=== PATIENT | female | born 1935 | race Caucasian/White ===

== ENCOUNTER 2018-12-10 22:10 | Inpatient (IN) | payer OTHER ==
[2018-12-10] MEDS ORDERED: METOPROLOL TARTRATE 5 MG/5 ML VIAL IVPUSH ONE (22:35)
[2018-12-10] MEDS ORDERED: METOPROLOL TARTRATE 5 MG/5 ML VIAL ONE (22:50)
--- NOTE | 2018-12-10 22:54 | PDOC ---
Documentation entered by Nichelle Jackson SCRIBE, acting as scribe for Rosanne Encinas DO. Rosanne Encinas, DO: This documentation has been prepared by the Renetta ramsey Adrianna, SCRIBE, under my direction and personally reviewed by me in its entirety. I confirm that the documentation accurately reflects all work, treatment, procedures, and medical decision making performed by me. History of Present Illness - General Stated Complaint: ABDOMINAL PAIN Time Seen by Provider: 12/10/18 22:22 - History of Present Illness Initial Comments: The patient is an 83 year old female, with a significant PMH of HTN and glaucoma , who presents to the ED for epigastric discomfort for a few hours. Patient notes she developed sudden onset epigastric discomfort after eating dinner earlier tonight. She states it feels funny, but denies any abdominal pain. Patient endorses associated nausea, and feels like she is going to vomit but cannot. She reports 4 episodes of diarrhea. Patient notes her heart feels like it is beating fast, which happens sometimes. She was found to be in Afib while in the ED, but denies any known history of Afib. Her friend was with her prior to arrival, and note she was pale with slightly slurred speech. Patient reports feeling warm and nauseous while in the ED. Denies fever, chills, chest pain, SOB, dysuria. Allergies: Cannot recall (BP medication) Surgical History: Hysterectomy Social History: Denies EtOH, tobacco, or illicit drug use PCP: Dr. Osman Alberts Past History - Past Medical History Allergies/Adverse Reactions: Allergies Allergy/AdvReac Type Severity Reaction Status Date / Time No Known Allergies Allergy Verified 12/10/18 22:44 Review of Systems - Review of Systems Comments:: GENERAL/CONSTITUTIONAL: +Warm. No fever or chills. No weakness. HEAD, EYES, EARS, NOSE AND THROAT: No change in vision. No ear pain or discharge. No sore throat. GASTROINTESTINAL: +Nausea. +Diarrhea. +Epigastric funny feeling. No vomiting or constipation. GENITOURINARY: No dysuria, frequency, or change in urination. CARDIOVASCULAR: +Heart beating fast. +Afib. No chest pain or shortness of breath. RESPIRATORY: No cough, wheezing, or hemoptysis. MUSCULOSKELETAL: No joint or muscle swelling or pain. No neck or back pain. SKIN: No rash NEUROLOGIC: No headache, vertigo, loss of consciousness, or change in strength/ sensation. ENDOCRINE: No increased thirst. No abnormal weight change. HEMATOLOGIC/LYMPHATIC: No anemia, easy bleeding, or history of blood clots. ALLERGIC/IMMUNOLOGIC: No hives or skin allergy. *Physical Exam - Vital Signs Last Vital Signs Temp Pulse Resp BP Pulse Ox 97.8 F 130 H 17 162/100 94 L 12/10/18 22:40 12/10/18 22:40 12/10/18 22:40 12/10/18 22:40 12/10/18 22:40 - Physical Exam Comments: Constitutional: Awake, alert, oriented. No acute distress. Head: Normocephalic. Atraumatic Eyes: PERRL. EOMI. Conjunctivae are not pale. ENT: Mucous membranes are moist and intact. Posterior pharynx without exudates or erythema. Uvula midline. Neck: Supple. Full ROM. No lymphadenopathy. Cardiovascular: +Tachycardic, +Irregularly irregular. S1, S2 regular. Distal pulses are 2+ and symmetric. Pulmonary/Chest: No evidence of respiratory distress. Clear to auscultation bilaterally No wheezing, rales or rhonchi. Abdominal: Soft and nondistended. There is no tenderness. No rebound, guarding or rigidity. No organomegaly. No palpable masses. Good bowel sounds. Back: No CVA tenderness. Musculoskeletal: No edema. No cyanosis. No clubbing. Full range of motion in all extremities. Nocalf tenderness. Radial/pedal pulses are intact and 2+ bilaterally Skin: Skin is warm and dry. No petechiae. No purpura. Neurological: Alert and oriented to person, place, and time. Cranial nerves II -XII are grossly intact. Normal speech. Strength is grossly symmetric. No sensory deficits. Psychiatric: Good eye contact. Normal interaction, affect and behavior. Heart Score/ECG Review - ECG Intrepretation Comment:: 12/10/18 22:47 afib w rvr at 128, nl axis, st depression v4-6, I, avl, no acute t wave inversions - new onset afib ED Treatment Course - LABORATORY CBC & Chemistry Diagram: 12/10/18 22:55 12/10/18 22:55 - RADIOLOGY Radiology Studies Ordered: Category Date Time Status CHEST X-RAY PORTABLE* [RAD] Stat Radiology 12/10/18 22:35 Ordered Medical Decision Making - Critical Care Time Total Critical Care Time (minutes): 35 Critical Care Statement: The care of this patient involved high complexity decision making to prevent further life threatening deterioration of the patient 's condition and/or to evaluate & treat vital organ system(s) failure or risk of failure. - Medical Decision Making 12/10/18 22:47 a/p: 83yo female with hx of htn with a funny epigastric feeling -states it started after dinner and then she had 4 episodes of diarrhea -denies cp/sob -denies n/v -pt arrives via ambulance from home in Afib w rvr -no prior hx of afib -will send labs, ekg, cxr, trop, bnp, electrolytes -will give iv lopressor given pt takes metoprolol 150mg daily -CHADSVASC = 4 -will need anticoag -case discussed with Dr. Alberts- admitting to [facility], requests Dr. Renae from cards 12/10/18 23:48 hr now 90-104 will add po metoprolol pt states feeling better potassium 3.2 will replace microblog sent to [facility] for admission call placed to cardiology 12/10/18 23:49 I, Dr. Rosanne Encinas, DO, attest that this document has been prepared under my direction and personally reviewed by me in its entirety. I further attest, that it accurately reflects all work, treatment, procedures and medical decision -making performed by me. 12/10/18 23:[address] Emerson - requests eliquis 5mg bid will start in the ER 12/11/18 00:07 cxr clear 12/11/18 00:[address] Almonte - at the bedside to see the patient accepts pt to service requests heparin gtt pending echo then eliquis Discharge - Discharge Information Problems reviewed: Yes Clinical Impression/Diagnosis: New onset a-fib Condition: Fair - Admission Yes - Follow up/Referral Referrals: Osman Alberts, RES [Primary Care Provider] - - Patient Discharge Instructions - Post Discharge Activity
[2018-12-10 23:05] LABS: BASO % 0.3 % (0-2.0); EOS % 0.2 % (0-4.5); HEMATOCRIT 38.8 % (32.4-45.2); LYMPH % 10.8 % (8-40); MCH 32.4 pg (25.7-33.7); MCHC 33.5 g/dl (32.0-36.0); MEAN CELL VOLUME 96.8 fl (80-96); MEAN PLT VOLUME 7.7 fl (7.5-11.1); MONO % 5.8 % (3.8-10.2); NEUT % 82.9 % (42.8-82.8); PLATELET COUNT 262 K/MM3 (134-434); RBC 4.01 M/mm3 (3.60-5.2); RDW 13.1 % (11.6-15.6); WHITE BLOOD COUNT 10.3 K/mm3 (4.0-10.0)
[2018-12-10 23:22] LABS: INR 1.06 (0.83-1.09); PROTHROMBIN TIME (PATIENT) 12.5 SEC (9.7-13.0)
[2018-12-10 23:28] LABS: BILIRUBIN,TOTAL 0.4 mg/dL (0.2-1); BLOOD UREA NITROGEN 24.1 mg/dL (7-18); CALCIUM 9.4 mg/dL (8.5-10.1); CREATININE 0.8 mg/dL (0.55-1.3); POTASSIUM 3.2 mmol/L (3.5-5.1); TOT PROT 8.1 g/dl (6.4-8.2)
[2018-12-10 23:34] LABS: LIPASE 181 U/L (73-393); MAGNESIUM 1.9 mg/dL (1.8-2.4); N-TERMINAL BNP 377.6 pg/ml (5-450)
[2018-12-10] MEDS ORDERED: APIXABAN 5 MG TABLET PO ONE (23:45)
[2018-12-10] MEDS ORDERED: POTASSIUM CHLORIDE TABS 20 MEQ TABLET.ER (FP) PO ONE (23:46)
[2018-12-10] MEDS ORDERED: ONDANSETRON 4 MG/2 ML VIAL IVPUSH ONE (23:46)
[2018-12-10] MEDS ORDERED: METOPROLOL TARTRATE 25 MG TABLET (FP) PO ONE (23:47)
--- NOTE | 2018-12-11 00:10 | PN ---
Teaching Attending Note Name of Resident: Aracelis Camara ATTENDING PHYSICIAN STATEMENT I saw and evaluated the patient. I reviewed the resident's note and discussed the case with the resident. I agree with the resident's findings and plan as documented. SUBJECTIVE: 83 year old female, with a significant PMH of HTN and glaucoma, who Complained of feeling poorly. She reported Feeling palpitations in her epigastric region.She denied any overt pain.Denied any history of any cardiac arrhythmias, chest pain, other cardiac disease. Found to be in new onset A. fib with RVR in the emergency room. OBJECTIVE: Last Vital Signs Temp Pulse Resp BP Pulse Ox 97.8 F 131 H 17 120/90 94 L 12/10/18 22:40 12/10/18 23:38 12/10/18 22:40 12/10/18 23:38 12/10/18 22:40 GENERAL: Well developed, well nourished. Awake and alert. No acute distress. HEENT: Normocephalic, atraumatic. PERRLA, EOMI. No conjunctival pallor. Sclera are non- icteric. Moist mucous membranes. Oropharynx is clear. NECK: Bilateral JVD appreciated, supple, no masses CARDIOVASCULAR: S1+ , S2 + irregularly irregular, RVR PULMONARY: No evidence of respiratory distress. Lungs clear to auscultation bilaterally. No wheezing, rales or rhonchi. ABDOMINAL: Soft. Non-tender. Non-distended. No rebound or guarding. No organomegaly. Normoactive bowel sounds. MUSCULOSKELETAL Normal range of motion at all joints. No bony deformities or tenderness. No CVA tenderness. EXTREMITIES: No cyanosis. No clubbing. No edema. No calf tenderness. SKIN: Warm and dry. Normal capillary refill. No rashes. No jaundice. PSYCHIATRIC: Cooperative. Good eye contact. Appropriate mood and affect. Abnormal Lab Results 12/10/18 12/10/18 22:55 22:55 WBC 10.3 H MCV 96.8 H Absolute Neuts (auto) 8.5 H Neutrophils % 82.9 H Potassium 3.2 L Chloride 95 L BUN 24.1 H Random Glucose 154 H Imaging reviewed EKG reviewed found to have A. fib with RVR ASSESSMENT AND PLAN: New onset atrial fibrillation with rapid ventricular response in an 83-year-old woman. Admit to telemetry Continue metoprolol home dose and add additional dose for cardiac rate control Echo TSH Check magnesium and other electrolytes Cardiology evaluation Started on heparin drip for anticoagulation discussed risks and benefits of anticoagulation including risk of bleeding with patient DVT prophylaxis
[2018-12-11] MEDS ORDERED: HEPARIN NA (PORCINE) 5,000 UNITS/ML 1ML VIAL IVPUSH PRN ×2 (00:40)
[2018-12-11] MEDS ORDERED: METOPROLOL TARTRATE 25 MG TABLET (FP) PO ONE (00:42)
[2018-12-11] MEDS ORDERED: HEPARIN - 25,000 UNIT in SODIUM CHLORIDE 495 ML IV SCH (00:45)
[2018-12-11] MEDS ORDERED: ONDANSETRON 4 MG/2 ML VIAL ONE (01:04)
[2018-12-11] MEDS ORDERED: HEPARIN NA (PORCINE) 5,000 UNITS/ML 1ML VIAL ONE (01:23)
[2018-12-11] MEDS ORDERED: HEPARIN INFUSION - 25,000 UNITS/500 ML INFUS.BAG IVPB ONE (01:23)
[2018-12-11] MEDS ORDERED: METOPROLOL TARTRATE 25 MG TABLET (FP) ONE (01:36)
[2018-12-11 01:53] LABS: EPI CELLS 0.8 /HPF (0-5/HPF); HYALINE CASTS 14 /lpf (0-8); URINE APPEARANCE CLOUDY; URINE BACTERIA 463.1 /hpf (NEGATIVE); URINE BILIRUBIN NEGATIVE (NEGATIVE); URINE COLOR YELLOW; URINE GLUCOSE (UA) NEGATIVE (NEGATIVE); URINE KETONE 1+ (NEGATIVE); URINE LEUK ESTERASE 2+ (NEGATIVE); URINE NITRITE NEGATIVE (NEGATIVE); URINE PROTEIN 1+ (NEGATIVE); URINE RBC 3 /hpf (0-4); URINE UROBILINOGEN 0.2 mg/dL (0.2-1.0); URINE WBC 102 /hpf (0-5)
--- NOTE | 2018-12-11 02:55 | HP ---
CHIEF COMPLAINT: Nausea PCP: Dr. Alberts HISTORY OF PRESENT ILLNESS: Patient is a 83 year old female with past medical history of HTN, glaucoma, fibroids (s/p hysterectomy) who presents to the ED with nausea since 2pm and 5 episodes of diarrhea. She also notes that she had an episode of rapid heart beat that lasted for about 30min. She felt weak, faint, and diaphoretic. She called a friend who was at the bedside. Per the friend the patient appeared diaphoretic, pale, and weak when she arrived at her home. On arrival in the ED the patient's EKG revealed atrial fibrillation with RVR. The patient denies any known history of Afib. The patient also endorsed epigastric discomfort which she attributes to her nausea and denied any CP, SOB, fever, chills, or dysuria. The patient stated she usually has normal daily BMs, including a normal BM yesterday. Her diarrhea today was not black in color and without obvious blood in it. She reports it resolved on its own prior to coming to the hospital. ER course was notable for: (1) EKG with Afib and RVR (2) IVP lopressor admin X2 (3) Heparin drip started, K+ repleted Recent Travel: denies PAST MEDICAL HISTORY: past medical history of HTN, glaucoma, fibroids (s/p hysterectomy) PAST SURGICAL HISTORY: s/p Hysterectomy at age 39 Social History: Smoking: denies Alcohol: denies Drugs: denies Allergies- patient reports an allergy to a BP med, does not recall name, said her reaction was facial swelling. No Known Allergies Allergy (Verified 12/10/18 22:44) HOME MEDICATIONS: Home Medications Medication Instructions Recorded Amlodipine Besylate 10 mg PO DAILY 12/11/18 Aspirin 81 mg PO DAILY 12/11/18 Hydrochlorothiazide [Hctz -] 50 mg PO DAILY 12/11/18 Potassium Chloride 10 meq PO DAILY 12/11/18 REVIEW OF SYSTEMS CONSTITUTIONAL: generalized weakness, Absent: fever, chills, diaphoresis, malaise, loss of appetite, weight change HEENT: Absent: rhinorrhea, nasal congestion, throat pain, throat swelling, difficulty swallowing, mouth swelling, ear pain, eye pain, visual changes CARDIOVASCULAR: palpitations, irregular heart rate, Absent: chest pain, syncope, lightheadedness, peripheral edema RESPIRATORY: Absent: cough, shortness of breath, dyspnea with exertion, orthopnea, wheezing, stridor, hemoptysis GASTROINTESTINAL: nausea, diarrhea Absent: abdominal pain, abdominal distension, vomiting, , constipation, melena, hematochezia GENITOURINARY: Absent: dysuria, frequency, urgency, hesitancy, hematuria, flank pain, genital pain MUSCULOSKELETAL: Absent: myalgia, arthralgia, joint swelling, back pain, neck pain SKIN: Absent: rash, itching, pallor HEMATOLOGIC/IMMUNOLOGIC: Absent: easy bleeding, easy bruising, lymphadenopathy, frequent infections ENDOCRINE: Absent: unexplained weight gain, unexplained weight loss, heat intolerance, cold intolerance NEUROLOGIC: Absent: headache, focal weakness or paresthesias, dizziness, unsteady gait, seizure, mental status changes, bladder or bowel incontinence PSYCHIATRIC: Absent: anxiety, depression, suicidal or homicidal ideation, hallucinations. PHYSICAL EXAMINATION Vital Signs - 24 hr 12/10/18 12/10/18 12/10/18 22:40 23:05 23:20 Temperature 97.8 F Pulse Rate 130 H Pulse Rate [ 110 H Radial] Respiratory 17 Rate Blood Pressure 162/100 168/98 Blood Pressure 125/79 [Left Arm] O2 Sat by Pulse 94 L Oximetry (%) 12/10/18 12/11/18 12/11/18 23:38 01:03 01:35 Temperature Pulse Rate Pulse Rate [ 131 H 108 H 139 H Radial] Respiratory 18 Rate Blood Pressure Blood Pressure 120/90 147/94 143/108 H [Left Arm] O2 Sat by Pulse 95 Oximetry (%) 12/11/18 12/11/18 12/11/18 02:28 02:29 02:36 Temperature Pulse Rate Pulse Rate [ 118 H 112 H Radial] Respiratory Rate Blood Pressure Blood Pressure 139/103 H 140/99 [Left Arm] O2 Sat by Pulse 95 95 Oximetry (%) GENERAL: Awake, alert, and fully oriented, in no acute distress. HEAD: Normal with no signs of trauma. EYES: Pupils equal, round and reactive to light, extraocular movements intact, sclera anicteric, conjunctiva clear. No lid lag. EARS, NOSE, THROAT: Ears normal, nares patent, oropharynx clear without exudates. Moist mucous membranes. NECK: Normal range of motion, supple without lymphadenopathy or masses, + JVD appreciated LUNGS: Breath sounds equal, clear to auscultation bilaterally. No wheezes, and no crackles. No accessory muscle use. HEART: irregularly irregular rhythm, RVR, tachycardic, S1+ , S2 + without murmur ABDOMEN: Soft, nontender, not distended, normoactive bowel sounds, no guarding, no rebound, no masses. No hepatomegaly or splenomegaly. L sided vertical hysterectomy scar MUSCULOSKELETAL: Normal range of motion at all joints. No bony deformities or tenderness. No CVA tenderness. UPPER EXTREMITIES: 2+ pulses, warm, well-perfused. No cyanosis. No clubbing. No peripheral edema. LOWER EXTREMITIES: 2+ pulses, warm, well-perfused. No calf tenderness. No peripheral edema. NEUROLOGICAL: Cranial nerves II-XII intact. Normal speech. Normal gait. PSYCHIATRIC: Cooperative. Good eye contact. Appropriate mood and affect. SKIN: Warm, dry, normal turgor, no rashes or lesions noted, normal capillary refill. On L side of mid back below scapula there is an old incision elpidio which appears healed however edges of wound are not apposed. Per patient, she had a small abcess which was drained via incision 2 years ago, no tenderness or erythema. LLE with stasis dermatitis from mid [place] to love. Laboratory Results - last 24 hr 12/10/18 12/10/18 12/10/18 22:55 22:55 22:55 WBC 10.3 H RBC 4.01 Hgb 13.0 Hct 38.8 MCV 96.8 H MCH 32.4 MCHC 33.5 RDW 13.1 Plt Count 262 MPV 7.7 Absolute Neuts (auto) 8.5 H Neutrophils % 82.9 H Lymphocytes % 10.8 Monocytes % 5.8 Eosinophils % 0.2 Basophils % 0.3 Nucleated RBC % 0 PT with INR INR PTT (Actin FS) 30.6 Sodium Potassium Chloride Carbon Dioxide Anion Gap BUN Creatinine Est GFR (CKD-EPI)AfAm Est GFR (CKD-EPI)NonAf Random Glucose Calcium Magnesium 1.9 Total Bilirubin AST ALT Alkaline Phosphatase Creatine Kinase 98 Troponin I < 0.02 B-Natriuretic Peptide 377.6 Total Protein Albumin Lipase 181 TSH 0.65 Urine Color Urine Appearance Urine pH Ur Specific [place] Urine Protein Urine Glucose (UA) Urine Ketones Urine Blood Urine Nitrite Urine Bilirubin Urine Urobilinogen Ur Leukocyte Esterase Urine WBC (Auto) Urine RBC (Auto) Urine Casts (Auto) U Epithel Cells (Auto) Urine Bacteria (Auto) 12/10/18 12/10/18 12/11/18 22:55 22:55 01:20 WBC RBC Hgb Hct MCV MCH MCHC RDW Plt Count MPV Absolute Neuts (auto) Neutrophils % Lymphocytes % Monocytes % Eosinophils % Basophils % Nucleated RBC % PT with INR 12.50 INR 1.06 PTT (Actin FS) Sodium 136 Potassium 3.2 L Chloride 95 L Carbon Dioxide 31 Anion Gap 10 BUN 24.1 H Creatinine 0.8 Est GFR (CKD-EPI)AfAm 78.47 Est GFR (CKD-EPI)NonAf 67.70 Random Glucose 154 H Calcium 9.4 Magnesium Total Bilirubin 0.4 AST 30 ALT 29 Alkaline Phosphatase 84 Creatine Kinase Troponin I B-Natriuretic Peptide Total Protein 8.1 Albumin 4.0 Lipase TSH Urine Color Yellow Urine Appearance Cloudy Urine pH 7.0 Ur Specific [place] 1.015 Urine Protein 1+ H Urine Glucose (UA) Negative Urine Ketones 1+ H Urine Blood Negative Urine Nitrite Negative Urine Bilirubin Negative Urine Urobilinogen 0.2 Ur Leukocyte Esterase 2+ H Urine WBC (Auto) 102 Urine RBC (Auto) 3 Urine Casts (Auto) 14 U Epithel Cells (Auto) 0.8 Urine Bacteria (Auto) 463.1 ASSESSMENT/PLAN: Patient is a 83 year old female with past medical history of HTN, glaucoma, fibroids (s/p hysterectomy) who presents to the ED with nausea since 2pm and 5 episodes of diarrhea. She also notes that she had an episode of rapid heart beat that lasted for about 30min. # Afib with RVR -CHADSVASC = 4 - Admit to telemetry - Continue metoprolol home dose, consider titrating up if rate still not well controlled - Echo to r/o mitral valve pathology - TSH - f/u magnesium and other electrolytes> replete prn - Cardiology consulted, Dr. Renae, appreciate recommendations - Started on heparin drip for anticoagulation pending results of echo, if no valve pathology switch to eliquis 5mg BID - patient counselled on risks and benefits of A/C, agreed to treatment. # FEN - replete PRN - Na restricted diet # PPx - Heparin drip pending Echo, if no valve pathology switch to eliquis 5mg BID. # Dispo- admit to tele, full code Visit type - Emergency Visit Emergency Visit: Yes ED Registration Date: 12/10/18 Care time: The patient presented to the Emergency Department on the above date and was hospitalized for further evaluation of their emergent condition. - New Patient This patient is new to me today: Yes Date on this admission: 12/11/18 - Critical Care Critical Care patient: No ATTENDING PHYSICIAN STATEMENT I saw and evaluated the patient. I reviewed the resident's note and discussed the case with the resident. I agree with the resident's findings and plan as documented. SUBJECTIVE: OBJECTIVE: ASSESSMENT AND PLAN:
[2018-12-11] MEDS ORDERED: METOPROLOL TARTRATE 5 MG/5 ML VIAL IVPUSH PRN (05:23)
[2018-12-11] MEDS ORDERED: METOPROLOL SUCCINATE 100 MG, METOPROLOL SUCCINATE 50 MG PO SCH ×2 (05:30→10:00)
[2018-12-11 06:47] VITALS: BMI 20.8
[2018-12-11 07:30] LABS: INR 1.2 (0.83-1.09); PROTHROMBIN TIME (PATIENT) 14.2 SEC (9.7-13.0)
[2018-12-11 07:34] LABS: BASO % 0.1 % (0-2.0); EOS % 0.1 % (0-4.5); HEMATOCRIT 36.9 % (32.4-45.2); HEMOGLOBIN 12.6 GM/dL (10.7-15.3); LYMPH % 14.9 % (8-40); MCH 32.5 pg (25.7-33.7); MEAN CELL VOLUME 95.6 fl (80-96); MEAN PLT VOLUME 7.7 fl (7.5-11.1); MONO % 8.8 % (3.8-10.2); NEUT % 76.1 % (42.8-82.8); PLATELET COUNT 259 K/MM3 (134-434); RBC 3.86 M/mm3 (3.60-5.2); RDW 12.7 % (11.6-15.6); WHITE BLOOD COUNT 8.7 K/mm3 (4.0-10.0)
[2018-12-11] MEDS: POTASSIUM CHLORIDE TABS 10 MEQ TABLET.ER (FP) PO SCH (09:28)
[2018-12-11] MEDS: dilTIAZem HCL 30 MG TABLET (FP) PO SCH ×3 (09:28→21:37)
[2018-12-11] MEDS ORDERED: PT OWN MED DRAWER 7, Y5N ONE (09:31)
[2018-12-11] MEDS ORDERED: HYDROCHLOROTHIAZIDE 50 MG TABLET PO SCH (10:00)
[2018-12-11] MEDS ORDERED: amLODIPine BESYLATE 10 MG TABLET (FP) PO SCH (10:00)
[2018-12-11] MEDS ORDERED: ASPIRIN 81 MG CHEWABLE TABLETS PO SCH (10:00)
--- NOTE | 2018-12-11 10:00 | CON.CARD ---
Consult Consult Specialty:: Cardiology Referred by:: Herb Reason for Consultation:: PAF - History of Present Illness Chief Complaint: palpitations History of Present Illness: Patient is a 83 year old female with past medical history of HTN, glaucoma, fibroids (s/p hysterectomy) who presents to the ED with nausea since 2pm and 5 episodes of diarrhea. She also notes that she had an episode of rapid heart beat that lasted for about 30min. She felt weak, faint, and diaphoretic. She called a friend who was at the bedside. Per the friend the patient appeared diaphoretic, pale, and weak when she arrived at her home. On arrival in the ED the patient's EKG revealed atrial fibrillation with RVR. No chest pain, orthopnea, PND or edema. Baseline exercise tolerance is good. - History Source History Provided By: Patient, Medical Record Limitations to Obtaining History: No Limitations - Alcohol/Substance Use Hx Alcohol Use: No - Smoking History Smoking history: Never smoked Have you smoked in the past 12 months: No Home Medications - Allergies Allergies/Adverse Reactions: Allergies Allergy/AdvReac Type Severity Reaction Status Date / Time No Known Allergies Allergy Verified 12/10/18 22:44 - Home Medications Home Medications: Ambulatory Orders Amlodipine Besylate 10 mg PO DAILY 12/11/18 Aspirin 81 mg PO DAILY 12/11/18 Hydrochlorothiazide [Hctz -] 50 mg PO DAILY 12/11/18 Metoprolol Succinate [Toprol Xl] 1.5 tablet PO DAILY 12/11/18 Potassium Chloride 10 meq PO DAILY 12/11/18 Vital Signs: Vital Signs Temperature 98.6 F 12/11/18 04:16 Pulse Rate 128 H 12/11/18 08:29 Respiratory Rate 20 12/11/18 04:16 Blood Pressure 138/79 12/11/18 08:29 O2 Sat by Pulse Oximetry (%) 96 12/11/18 03:47 Constitutional: Yes: No Distress, Calm Eyes: Yes: Conjunctiva Clear, EOM Intact HENT: Yes: Atraumatic, Normocephalic Neck: Yes: Supple, Trachea Midline Respiratory: Yes: CTA Bilaterally Gastrointestinal: Yes: Normal Bowel Sounds, Soft Cardiovascular: Yes: Tachycardia, Pulse Irregular JVD: No Carotid Bruit: No PMI: Non-Displaced Heart Sounds: Yes: S1, S2 Murmur: Yes: Systolic Murmur, Grade 2 Musculoskeletal: Yes: WNL Extremities: Yes: WNL Edema: No Peripheral Pulses WNL: Yes - Other Data Labs, Other Data: CBC, BMP 12/11/18 06:45 INR, PTT INR 1.20 (0.83-1.09) H 12/11/18 06:45 Troponin, BNP 12/10/18 22:55 Troponin I < 0.02 B-Natriuretic Peptide 377.6 Troponin, BNP 12/10/18 22:55 Troponin I < 0.02 B-Natriuretic Peptide 377.6 Imaging - Results Chest X-ray: Report Reviewed EKG: Report Reviewed (af rvr) Assessment/Plan Patient is a 83 year old female with past medical history of HTN, glaucoma, fibroids (s/p hysterectomy) who presents to the ED with nausea since 2pm and 5 episodes of diarrhea. She also notes that she had an episode of rapid heart beat that lasted for about 30min. She felt weak, faint, and diaphoretic. She called a friend who was at the bedside. Per the friend the patient appeared diaphoretic, pale, and weak when she arrived at her home. On arrival in the ED the patient's EKG revealed atrial fibrillation with RVR. Plan: -TFT's -echo results pending. -continue beta rosey PO -change heparin to Eliquis 2.5 mg bid -continue telemetry.
[2018-12-11 10:09] LABS: ALBUMIN 3.6 g/dl (3.4-5.0); BILIRUBIN,TOTAL 0.4 mg/dL (0.2-1); BLOOD UREA NITROGEN 18.4 mg/dL (7-18); CREATININE 0.8 mg/dL (0.55-1.3); MAGNESIUM 1.9 mg/dL (1.8-2.4); PHOSPHOROUS 3.3 mg/dL (2.5-4.9); TOT PROT 8.1 g/dl (6.4-8.2)
[2018-12-11 10:12] LABS: POTASSIUM 3.4 mmol/L (3.5-5.1)
--- NOTE | 2018-12-11 12:05 | EKG ---
Test Reason : Blood Pressure : / mmHG Vent. Rate : 121 BPM Atrial Rate : 300 BPM P-R Int : 000 ms QRS Dur : 084 ms QT Int : 340 ms P-R-T Axes : 000 045 088 degrees QTc Int : 482 ms ATRIAL FLUTTER WITH VARIABLE A-V BLOCK ABNORMAL ECG WHEN COMPARED WITH ECG OF 10-DEC-2018 22:17, ATRIAL FLUTTER HAS REPLACED ATRIAL FIBRILLATION NONSPECIFIC T WAVE ABNORMALITY HAS REPLACED INVERTED T WAVES IN LATERAL LEADS Confirmed by RAFFI SCHWARTZ MD ([id number]) on 12/11/2018 12:05:25 PM Referred By: Confirmed By:RAFFI SCHWARTZ MD
--- NOTE | 2018-12-11 12:05 | EKG ---
Test Reason : Blood Pressure : / mmHG Vent. Rate : 128 BPM Atrial Rate : 125 BPM P-R Int : 000 ms QRS Dur : 088 ms QT Int : 264 ms P-R-T Axes : 000 039 199 degrees QTc Int : 385 ms ATRIAL FIBRILLATION WITH RAPID VENTRICULAR RESPONSE POSTERIOR INFARCT , AGE UNDETERMINED ABNORMAL ECG NO PREVIOUS ECGS AVAILABLE Confirmed by RAFFI SCHWARTZ MD ([id number]) on 12/11/2018 12:05:08 PM Referred By: Confirmed By:RAFFI SCHWARTZ MD
--- NOTE | 2018-12-11 14:22 | ECHO ---
Name: LAURALOVELY Exam:Adult Echocardiogram Study Date: 12/11/2018 11:06 AM Age: 83 yrs Reason For Study: AFIB Height: 62 in Weight: 200 lb BSA: 1.9 m2 MMode/2D Measurements & Calculations IVSd: 0.91 cm Ao root diam: 2.8 cm LVIDd: 3.1 cm LA dimension: 3.4 cm LVIDs: 2.4 cm LVPWd: 1.0 cm LVPWs: 1.2 cm EDV(Teich): 38.1 ml ESV(Teich): 19.5 ml LVOT diam: 1.6 cm LAV (MOD-bp): 37.0 ml Doppler Measurements & Calculations MV E max hyacinth: 101.0 cm/sec Ao V2 max: 161.6 cm/sec MV A max hyacinth: 84.4 cm/sec Ao max P.4 mmHg MV E/A: 1.2 ELISA(V,D): 1.1 cm2 LV V1 max P.1 mmHg TR max hyacinth: 260.6 cm/sec LV V1 max: 87.9 cm/sec TR max P.6 mmHg PA V2 max: 95.0 cm/sec Lat Peak E' Hyacinth: 3.7 cm/sec PA max P.6 mmHg Lat E/e': 27.1 Procedure A complete two-dimensional transthoracic echocardiogram was performed (2D, M-mode, Doppler and color flow Doppler). The patient was in atrial fibrillation with rapid ventricular response during the exam with a heart rate exceeding 100 bpm. Left Ventricle The left ventricular size, thickness and function are normal. The left ventricular ejection fraction is normal. Ejection Fraction = 60-65%. The left ventricular wall motion is normal. Right Ventricle The right ventricle is normal in size and function. Atria Normal left and right atrial size and function. The atrial septum is aneurysmal. Mitral Valve There is trace mitral regurgitation. Tricuspid Valve There is moderate tricuspid regurgitation. Right ventricular systolic pressure is normal. Aortic Valve No hemodynamically significant valvular aortic stenosis. No aortic regurgitation is present. Pulmonic Valve There is no pulmonic valvular regurgitation. Great Vessels The aortic root is normal size. Pericardium/Pleura There is no pericardial effusion. Interpretation Summary The left ventricular size, thickness and function are normal The right ventricle is normal in size and function. The atrial septum is aneurysmal. There is trace mitral regurgitation. There is moderate tricuspid regurgitation. The patient was in atrial fibrillation with rapid ventricular response during the exam. MD Ben Hoff 12/11/2018 02:21 PM
[2018-12-11] MEDS ORDERED: POTASSIUM CHLORIDE ORAL LIQUID 20 MEQ/15 ML PO ONE (14:50)
[2018-12-11] MEDS ORDERED: SODIUM CHLORIDE 1,000 ML IV SCH (15:00)
[2018-12-11] MEDS ORDERED: SODIUM CHLORIDE 0.9% 500 ML INFUS.BAG IV ONE (15:00)
--- NOTE | 2018-12-11 15:23 | PN ---
Physical Exam: SUBJECTIVE: Patient seen and examined NAEON. Tele showing monitor HR 120-130s Endorse abd discomfort, no pain. No diarrhea OBJECTIVE: Vital Signs Period Temp Pulse Resp BP Sys/Pan Pulse Ox Last 24 Hr 97.8 F-98.6 F 106-139 17-20 120-168/79-108 94-96 GENERAL: awake, alert, and fully oriented, NAD HEAD: Normal with no signs of trauma. EYES: sclera anicteric, conjunctiva clear ENT: nares patent, moist mucous membranes. NECK: Trachea midline, full range of motion, supple. LUNGS: Breath sounds equal, clear to auscultation bilaterally, no wheezes, no crackles, no accessory muscle use. HEART: irregular rhythm, tachycardia; S1, S2 without murmur, rub or gallop. ABDOMEN: Soft, nontender, nondistended, normoactive bowel sounds, no guarding, no rebound. EXTREMITIES: 2+ pulses, warm, well-perfused. Mild nonpitting edema of BLE. NEUROLOGICAL: Normal speech. SKIN: Warm, dry, normal turgor. Purpuric ecchymotic patch of distal LLE Laboratory Results - last 24 hr 12/10/18 12/10/18 12/10/18 22:55 22:55 22:55 WBC 10.3 H RBC 4.01 Hgb 13.0 Hct 38.8 MCV 96.8 H MCH 32.4 MCHC 33.5 RDW 13.1 Plt Count 262 MPV 7.7 Absolute Neuts (auto) 8.5 H Neutrophils % 82.9 H Lymphocytes % 10.8 Monocytes % 5.8 Eosinophils % 0.2 Basophils % 0.3 Nucleated RBC % 0 PT with INR INR PTT (Actin FS) 30.6 Sodium Potassium Chloride Carbon Dioxide Anion Gap BUN Creatinine Est GFR (CKD-EPI)AfAm Est GFR (CKD-EPI)NonAf Random Glucose Hemoglobin A1c % Lactic Acid Calcium Phosphorus Magnesium 1.9 Total Bilirubin AST ALT Alkaline Phosphatase Creatine Kinase 98 Troponin I < 0.02 B-Natriuretic Peptide 377.6 Total Protein Albumin Triglycerides Cholesterol Total LDL Cholesterol HDL Cholesterol Lipase 181 TSH 0.65 Free T4 Urine Color Urine Appearance Urine pH Ur Specific [place] Urine Protein Urine Glucose (UA) Urine Ketones Urine Blood Urine Nitrite Urine Bilirubin Urine Urobilinogen Ur Leukocyte Esterase Urine WBC (Auto) Urine RBC (Auto) Urine Casts (Auto) U Epithel Cells (Auto) Urine Bacteria (Auto) Blood Type Antibody Screen 12/10/18 12/10/18 12/11/18 22:55 22:55 01:20 WBC RBC Hgb Hct MCV MCH MCHC RDW Plt Count MPV Absolute Neuts (auto) Neutrophils % Lymphocytes % Monocytes % Eosinophils % Basophils % Nucleated RBC % PT with INR 12.50 INR 1.06 PTT (Actin FS) Sodium 136 Potassium 3.2 L Chloride 95 L Carbon Dioxide 31 Anion Gap 10 BUN 24.1 H Creatinine 0.8 Est GFR (CKD-EPI)AfAm 78.47 Est GFR (CKD-EPI)NonAf 67.70 Random Glucose 154 H Hemoglobin A1c % Lactic Acid Calcium 9.4 Phosphorus Magnesium Total Bilirubin 0.4 AST 30 ALT 29 Alkaline Phosphatase 84 Creatine Kinase Troponin I B-Natriuretic Peptide Total Protein 8.1 Albumin 4.0 Triglycerides Cholesterol Total LDL Cholesterol HDL Cholesterol Lipase TSH Free T4 Urine Color Yellow Urine Appearance Cloudy Urine pH 7.0 Ur Specific [place] 1.015 Urine Protein 1+ H Urine Glucose (UA) Negative Urine Ketones 1+ H Urine Blood Negative Urine Nitrite Negative Urine Bilirubin Negative Urine Urobilinogen 0.2 Ur Leukocyte Esterase 2+ H Urine WBC (Auto) 102 Urine RBC (Auto) 3 Urine Casts (Auto) 14 U Epithel Cells (Auto) 0.8 Urine Bacteria (Auto) 463.1 Blood Type Antibody Screen 12/11/18 12/11/18 12/11/18 02:20 02:30 06:45 WBC 8.7 RBC 3.86 Hgb 12.6 Hct 36.9 MCV 95.6 MCH 32.5 MCHC 34.0 RDW 12.7 Plt Count 259 MPV 7.7 Absolute Neuts (auto) 6.6 Neutrophils % 76.1 Lymphocytes % 14.9 D Monocytes % 8.8 Eosinophils % 0.1 Basophils % 0.1 Nucleated RBC % 0 PT with INR INR PTT (Actin FS) Sodium Potassium Chloride Carbon Dioxide Anion Gap BUN Creatinine Est GFR (CKD-EPI)AfAm Est GFR (CKD-EPI)NonAf Random Glucose Hemoglobin A1c % Lactic Acid 2.1 H Calcium Phosphorus Magnesium Total Bilirubin AST ALT Alkaline Phosphatase Creatine Kinase Troponin I B-Natriuretic Peptide Total Protein Albumin Triglycerides Cholesterol Total LDL Cholesterol HDL Cholesterol Lipase TSH Free T4 Urine Color Urine Appearance Urine pH Ur Specific [place] Urine Protein Urine Glucose (UA) Urine Ketones Urine Blood Urine Nitrite Urine Bilirubin Urine Urobilinogen Ur Leukocyte Esterase Urine WBC (Auto) Urine RBC (Auto) Urine Casts (Auto) U Epithel Cells (Auto) Urine Bacteria (Auto) Blood Type A POSITIVE Antibody Screen Negative 12/11/18 12/11/18 12/11/18 06:45 06:45 06:45 WBC RBC Hgb Hct MCV MCH MCHC RDW Plt Count MPV Absolute Neuts (auto) Neutrophils % Lymphocytes % Monocytes % Eosinophils % Basophils % Nucleated RBC % PT with INR 14.20 H INR 1.20 H PTT (Actin FS) Sodium 128 L Potassium 3.4 L Chloride 90 L Carbon Dioxide 22 Anion Gap 17 H BUN 18.4 H Creatinine 0.8 Est GFR (CKD-EPI)AfAm 78.47 Est GFR (CKD-EPI)NonAf 67.70 Random Glucose 137 H Hemoglobin A1c % 5.9 Lactic Acid Calcium 9.0 Phosphorus 3.3 Magnesium 1.9 Total Bilirubin 0.4 AST 29 ALT 28 Alkaline Phosphatase 83 Creatine Kinase Troponin I B-Natriuretic Peptide Total Protein 8.1 Albumin 3.6 Triglycerides 47 Cholesterol 226 H Total LDL Cholesterol 130 H HDL Cholesterol 91 H Lipase TSH 0.30 L Free T4 1.40 Urine Color Urine Appearance Urine pH Ur Specific [place] Urine Protein Urine Glucose (UA) Urine Ketones Urine Blood Urine Nitrite Urine Bilirubin Urine Urobilinogen Ur Leukocyte Esterase Urine WBC (Auto) Urine RBC (Auto) Urine Casts (Auto) U Epithel Cells (Auto) Urine Bacteria (Auto) Blood Type Antibody Screen 12/11/18 06:45 WBC RBC Hgb Hct MCV MCH MCHC RDW Plt Count MPV Absolute Neuts (auto) Neutrophils % Lymphocytes % Monocytes % Eosinophils % Basophils % Nucleated RBC % PT with INR INR PTT (Actin FS) Sodium Potassium Chloride Carbon Dioxide Anion Gap BUN Creatinine Est GFR (CKD-EPI)AfAm Est GFR (CKD-EPI)NonAf Random Glucose Hemoglobin A1c % Lactic Acid Calcium Phosphorus Magnesium Total Bilirubin AST ALT Alkaline Phosphatase Creatine Kinase Troponin I B-Natriuretic Peptide Total Protein Albumin Triglycerides Cholesterol Total LDL Cholesterol HDL Cholesterol Lipase TSH Free T4 Urine Color Urine Appearance Urine pH Ur Specific [place] [facility] Urine Protein Urine Glucose (UA) Urine Ketones Urine Blood Urine Nitrite Urine Bilirubin Urine Urobilinogen Ur Leukocyte Esterase Urine WBC (Auto) Urine RBC (Auto) Urine Casts (Auto) U Epithel Cells (Auto) Urine Bacteria (Auto) Blood Type A POSITIVE Antibody Screen Active Medications Generic Name Dose Route Start Last Admin Trade Name Freq PRN Reason Stop Dose Admin Apixaban 2.5 mg 12/11/18 22:00 Eliquis - PO BID EUNICE Diltiazem HCl 30 mg 12/11/18 08:40 12/11/18 14:02 Cardizem - PO 30 mg TID EUNICE Administration Hydrochlorothiazide 50 mg 12/11/18 10:00 12/11/18 09:32 Hctz - PO 50 mg DAILY EUNICE Administration Heparin Sodium (Porcine) 25, 500 mls @ 20 mls/hr 12/11/18 00:45 12/11/18 01: 35 000 unit/ Sodium Chloride IV 12/11/18 20:00 1,000 unit/hr TITR EUNICE 20 mls/hr Administration Protocol 1,000 UNIT/HR Metoprolol Succinate 200 mg 12/11/18 11:43 Toprol Xl - PO DAILY EUNICE Metoprolol Tartrate 5 mg 12/11/18 05:23 12/11/18 08:29 Lopressor Injection - IVPUSH 5 mg Q4H PRN Administration HYPERTENSION Potassium Chloride 10 meq 12/11/18 10:00 12/11/18 09:28 K-Dur - PO 10 meq DAILY EUNICE Administration Potassium Chloride 40 meq 12/11/18 14:50 Potassium Chloride Oral Liquid PO 12/11/18 14:51 ONCE ONE Vital Signs Temp 98.6 F 12/11/18 04:16 Pulse 128 H 12/11/18 08:29 Resp 20 12/11/18 04:16 BP 138/79 12/11/18 08:29 Pulse Ox 96 12/11/18 03:47 Intake & Output 12/10/18 12/11/18 12/11/18 23:59 11:59 23:59 Weight 90.718 kg 56.812 kg Other: Voiding Method Bedpan Height 5 ft 2 in 5 ft 5 in Body Mass Index (BMI) 36.6 20.8 Weight Measurement Method Est/Stated by Patient ASSESSMENT/PLAN: 83F with past medical history of HTN, glaucoma, fibroids (s/p hysterectomy) who presents to the ED with epigastric abd discomfort, nausea and 5 episodes of diarrhea w/a chest palpitations that lasted for about 30min. Recently, had ~1mo of intermittent chest palpitations last <30sec. Found to be in Afib w/ RVR(HR 130s) in the ED. Given lopressor 5mg IVP w/ improvement in HR, heparin gtt wa started. Cardiology increased home metoprolol from 150mg QD to 200mg QD. Primary teamed added cardizem 30mg q8h. # Afib with RVR, new dx --unclear etiology > CHADSVASC = 4 > Echo(12/11/18): normal LV size/funct, aneurysmal atrial sepum, mod TR > BNP 377.6 > troponin < 0.02 - consult CardiolMalena): -- TFTs --completed -- echo --completed -- cw BB PO --increased to metoprolol succinate 200mg QD -- change heparin gtt to Eliquis 2.5mg BID - Admit to telemetry - Continue metoprolol home dose, consider titrating up if rate still not well controlled # abdominal discomfort --improved - monitor for now # asymptomatic ?UTI --holding abx until symptomatic or positive UCX > UA(12/11/18): neg nitrite, 2+ LE, WBC 102, Bact 463 > UCX: pending collection # hypoantremia > Na 136 --> 128 - bolus NS 500cc - NS IVF infusion - rpt BMP @2100 # ?hypothyroidism > TSH 0.65->0.3 > Free T4 1.4 # chronic HLD > T cholesterol 226, LDL 130, HDL 91 # chronic HTN - cw home HCTZ # FEN - NS @75 - replete PRN - Cardiac diet # PPx - Eliquis 2.5mg BID # Dispo- admit to tele, full code Visit type - Emergency Visit Emergency Visit: No - New Patient This patient is new to me today: No - Critical Care Critical Care patient: No ATTENDING PHYSICIAN STATEMENT I saw and evaluated the patient. I reviewed the resident's note and discussed the case with the resident. I agree with the resident's findings and plan as documented. SUBJECTIVE: OBJECTIVE: ASSESSMENT AND PLAN:
--- NOTE | 2018-12-11 18:55 | PN ---
Teaching Attending Note Name of Resident: Tuan Dsouza ATTENDING PHYSICIAN STATEMENT I saw and evaluated the patient. I reviewed the resident's note and discussed the case with the resident. I agree with the resident's findings and plan as documented. SUBJECTIVE: Feels better - no CP/palpitations/SOB. o cough/sputum/ No fever/ chills. OBJECTIVE: Afebrile, Hemodynamicaly Stable. Last Vital Signs Temp Pulse Resp BP Pulse Ox 99.4 F 115 H 21 H 111/73 96 12/11/18 18:35 12/11/18 18:35 12/11/18 18:35 12/11/18 18:35 12/11/18 10:00 HEENT - Atraumatic, Normocephalic. Heart - S1, S2, Irregular Lungs - clear to auscultation Abdomen - soft, non-tender. Bowel Sounds normal. Extremities - No edema, no calf tenderness Neuro - AAO x 3. tone/Power normal all 4 extremities. Laboratory Results - last 24 hr 12/10/18 12/10/18 12/10/18 22:55 22:55 22:55 WBC 10.3 H RBC 4.01 Hgb 13.0 Hct 38.8 MCV 96.8 H MCH 32.4 MCHC 33.5 RDW 13.1 Plt Count 262 MPV 7.7 Absolute Neuts (auto) 8.5 H Neutrophils % 82.9 H Lymphocytes % 10.8 Monocytes % 5.8 Eosinophils % 0.2 Basophils % 0.3 Nucleated RBC % 0 PT with INR INR PTT (Actin FS) 30.6 Sodium Potassium Chloride Carbon Dioxide Anion Gap BUN Creatinine Est GFR (CKD-EPI)AfAm Est GFR (CKD-EPI)NonAf Random Glucose Hemoglobin A1c % Lactic Acid Calcium Phosphorus Magnesium 1.9 Total Bilirubin AST ALT Alkaline Phosphatase Creatine Kinase 98 Troponin I < 0.02 B-Natriuretic Peptide 377.6 Total Protein Albumin Triglycerides Cholesterol Total LDL Cholesterol HDL Cholesterol Lipase 181 TSH 0.65 Free T4 Urine Color Urine Appearance Urine pH Ur Specific [place] Urine Protein Urine Glucose (UA) Urine Ketones Urine Blood Urine Nitrite Urine Bilirubin Urine Urobilinogen Ur Leukocyte Esterase Urine WBC (Auto) Urine RBC (Auto) Urine Casts (Auto) U Epithel Cells (Auto) Urine Bacteria (Auto) Blood Type Antibody Screen 12/10/18 12/10/18 12/11/18 22:55 22:55 01:20 WBC RBC Hgb Hct MCV MCH MCHC RDW Plt Count MPV Absolute Neuts (auto) Neutrophils % Lymphocytes % Monocytes % Eosinophils % Basophils % Nucleated RBC % PT with INR 12.50 INR 1.06 PTT (Actin FS) Sodium 136 Potassium 3.2 L Chloride 95 L Carbon Dioxide 31 Anion Gap 10 BUN 24.1 H Creatinine 0.8 Est GFR (CKD-EPI)AfAm 78.47 Est GFR (CKD-EPI)NonAf 67.70 Random Glucose 154 H Hemoglobin A1c % Lactic Acid Calcium 9.4 Phosphorus Magnesium Total Bilirubin 0.4 AST 30 ALT 29 Alkaline Phosphatase 84 Creatine Kinase Troponin I B-Natriuretic Peptide Total Protein 8.1 Albumin 4.0 Triglycerides Cholesterol Total LDL Cholesterol HDL Cholesterol Lipase TSH Free T4 Urine Color Yellow Urine Appearance Cloudy Urine pH 7.0 Ur Specific [place] 1.015 Urine Protein 1+ H Urine Glucose (UA) Negative Urine Ketones 1+ H Urine Blood Negative Urine Nitrite Negative Urine Bilirubin Negative Urine Urobilinogen 0.2 Ur Leukocyte Esterase 2+ H Urine WBC (Auto) 102 Urine RBC (Auto) 3 Urine Casts (Auto) 14 U Epithel Cells (Auto) 0.8 Urine Bacteria (Auto) 463.1 Blood Type Antibody Screen 12/11/18 12/11/18 12/11/18 02:20 02:30 06:45 WBC 8.7 RBC 3.86 Hgb 12.6 Hct 36.9 MCV 95.6 MCH 32.5 MCHC 34.0 RDW 12.7 Plt Count 259 MPV 7.7 Absolute Neuts (auto) 6.6 Neutrophils % 76.1 Lymphocytes % 14.9 D Monocytes % 8.8 Eosinophils % 0.1 Basophils % 0.1 Nucleated RBC % 0 PT with INR INR PTT (Actin FS) Sodium Potassium Chloride Carbon Dioxide Anion Gap BUN Creatinine Est GFR (CKD-EPI)AfAm Est GFR (CKD-EPI)NonAf Random Glucose Hemoglobin A1c % Lactic Acid 2.1 H Calcium Phosphorus Magnesium Total Bilirubin AST ALT Alkaline Phosphatase Creatine Kinase Troponin I B-Natriuretic Peptide Total Protein Albumin Triglycerides Cholesterol Total LDL Cholesterol HDL Cholesterol Lipase TSH Free T4 Urine Color Urine Appearance Urine pH Ur Specific [place] Urine Protein Urine Glucose (UA) Urine Ketones Urine Blood Urine Nitrite Urine Bilirubin Urine Urobilinogen Ur Leukocyte Esterase Urine WBC (Auto) Urine RBC (Auto) Urine Casts (Auto) U Epithel Cells (Auto) Urine Bacteria (Auto) Blood Type A POSITIVE Antibody Screen Negative 12/11/18 12/11/18 12/11/18 06:45 06:45 06:45 WBC RBC Hgb Hct MCV MCH MCHC RDW Plt Count MPV Absolute Neuts (auto) Neutrophils % Lymphocytes % Monocytes % Eosinophils % Basophils % Nucleated RBC % PT with INR 14.20 H INR 1.20 H PTT (Actin FS) Sodium 128 L Potassium 3.4 L Chloride 90 L Carbon Dioxide 22 Anion Gap 17 H BUN 18.4 H Creatinine 0.8 Est GFR (CKD-EPI)AfAm 78.47 Est GFR (CKD-EPI)NonAf 67.70 Random Glucose 137 H Hemoglobin A1c % 5.9 Lactic Acid Calcium 9.0 Phosphorus 3.3 Magnesium 1.9 Total Bilirubin 0.4 AST 29 ALT 28 Alkaline Phosphatase 83 Creatine Kinase Troponin I B-Natriuretic Peptide Total Protein 8.1 Albumin 3.6 Triglycerides 47 Cholesterol 226 H Total LDL Cholesterol 130 H HDL Cholesterol 91 H Lipase TSH 0.30 L Free T4 1.40 Urine Color Urine Appearance Urine pH Ur Specific [place] Urine Protein Urine Glucose (UA) Urine Ketones Urine Blood Urine Nitrite Urine Bilirubin Urine Urobilinogen Ur Leukocyte Esterase Urine WBC (Auto) Urine RBC (Auto) Urine Casts (Auto) U Epithel Cells (Auto) Urine Bacteria (Auto) Blood Type Antibody Screen 12/11/18 06:45 WBC RBC Hgb Hct MCV MCH MCHC RDW Plt Count MPV Absolute Neuts (auto) Neutrophils % Lymphocytes % Monocytes % Eosinophils % Basophils % Nucleated RBC % PT with INR INR PTT (Actin FS) Sodium Potassium Chloride Carbon Dioxide Anion Gap BUN Creatinine Est GFR (CKD-EPI)AfAm Est GFR (CKD-EPI)NonAf Random Glucose Hemoglobin A1c % Lactic Acid Calcium Phosphorus Magnesium Total Bilirubin AST ALT Alkaline Phosphatase Creatine Kinase Troponin I B-Natriuretic Peptide Total Protein Albumin Triglycerides Cholesterol Total LDL Cholesterol HDL Cholesterol Lipase TSH Free T4 Urine Color Urine Appearance Urine pH Ur Specific [place] Urine Protein Urine Glucose (UA) Urine Ketones Urine Blood Urine Nitrite Urine Bilirubin Urine Urobilinogen Ur Leukocyte Esterase Urine WBC (Auto) Urine RBC (Auto) Urine Casts (Auto) U Epithel Cells (Auto) Urine Bacteria (Auto) Blood Type A POSITIVE Antibody Screen Current Medications Generic Name Dose Route Start Last Admin Trade Name Freq PRN Reason Stop Dose Admin Apixaban 2.5 mg 12/11/18 22:00 Eliquis - PO BID EUNICE Diltiazem HCl 30 mg 12/11/18 08:40 12/11/18 14:02 Cardizem - PO 30 mg TID EUNICE Administration Heparin Sodium (Porcine) 25, 500 mls @ 20 mls/hr 12/11/18 00:45 12/11/18 01: 35 000 unit/ Sodium Chloride IV 12/11/18 20:00 1,000 unit/hr TITR EUNICE 20 mls/hr Administration Protocol 1,000 UNIT/HR Sodium Chloride 1,000 mls @ 75 mls/hr 12/11/18 15:00 12/11/18 18:09 Normal Saline - IV 75 mls/hr ASDIR EUNICE Administration Metoprolol Succinate 200 mg 12/11/18 11:43 Toprol Xl - PO DAILY [facility] Metoprolol Tartrate 5 mg 12/11/18 05:23 12/11/18 08:29 Lopressor Injection - IVPUSH 5 mg Q4H PRN Administration HYPERTENSION Potassium Chloride 10 meq 12/11/18 10:00 12/11/18 09:28 K-Dur - PO 10 meq DAILY EUNICE Administration Home Medications Medication Instructions Recorded Amlodipine Besylate 10 mg PO DAILY 12/11/18 Aspirin 81 mg PO DAILY 12/11/18 Hydrochlorothiazide [Hctz -] 50 mg PO DAILY 12/11/18 Latanoprostene Bunod [Vyzulta] 1 drop OU DAILY 12/11/18 Metoprolol Succinate [Toprol Xl] 1.5 tablet PO DAILY 12/11/18 Potassium Chloride 10 meq PO DAILY 12/11/18 Sertraline HCl [Zoloft -] 50 mg PO DAILY 12/11/18 Timolol 0.5% [Timoptic 0.5%] 1 drop OU BID 12/11/18 Travoprost [Travatan Z] 1 drop OU ACHS 12/11/18 ASSESSMENT AND PLAN: 83 year old female with history of HTN, Depression, presented with palpitations and found to have Atrial Fiibrillation with RVR. 1. Newly recognized Atrial Fibrillation with RVR ECG - Afib with RVR, no acute changes TropI neg TSH 0.65, free T4 1.4. Metoprolol XL increased to 200mg and Cardizem 30mg TID added. Telemonitoring Heparin drip transitioned to Eliquis 2.5mg BID Echo - normal. Cardio consult rec transition to Eliquis and increase in Metoprolol dose. 2. HTN - normally on Norvasc, HCTZ, and Toprol. Toprol dose increased. HCTZ and Norvasc discontinued. Cardizem added. 3. Depression - continue Zoloft DVT Px - on Eliquis.
[2018-12-11] MEDS ORDERED: LATANOPROSTENE BUNOD OU SCH (20:00)
[2018-12-11] MEDS: APIXABAN 2.5 MG TABLET PO SCH (21:37)
[2018-12-11] MEDS: TIMOLOL 0.5% OPHTHALMIC SOL 5 ML BOTTLE OU SCH (21:39)
[2018-12-11] MEDS ORDERED: LATANOPROST 0.005% OPHTH SOLN 2.5ML BOTTLE OU SCH (22:00)
[2018-12-11 22:10] LABS: BLOOD UREA NITROGEN 15.9 mg/dL (7-18); CALCIUM 8.1 mg/dL (8.5-10.1); CREATININE 0.7 mg/dL (0.55-1.3); POTASSIUM 3.9 mmol/L (3.5-5.1)
[2018-12-12] MEDS ORDERED: SODIUM CHLORIDE 0.9% 500 ML INFUS.BAG IV ONE (01:04)
[2018-12-12 03:41] LABS: BLOOD UREA NITROGEN 13.9 mg/dL (7-18); CALCIUM 7.6 mg/dL (8.5-10.1); CREATININE 0.6 mg/dL (0.55-1.3); POTASSIUM 3.3 mmol/L (3.5-5.1)
[2018-12-12] MEDS: dilTIAZem HCL 30 MG TABLET (FP) PO SCH (05:49)
[2018-12-12] MEDS ORDERED: KCL 10 MEQ IVPB 10 MEQ/100 ML INFUS.BAG IVPB SCH (08:45)
[2018-12-12] MEDS: APIXABAN 2.5 MG TABLET PO SCH (10:00)
[2018-12-12] MEDS ORDERED: POTASSIUM CHLORIDE TABS 20 MEQ TABLET.ER (FP) PO SCH (10:00)
[2018-12-12] MEDS: POTASSIUM CHLORIDE TABS 10 MEQ TABLET.ER (FP) PO SCH (10:00)
[2018-12-12] MEDS: TIMOLOL 0.5% OPHTHALMIC SOL 5 ML BOTTLE OU SCH (10:01)
--- NOTE | 2018-12-12 11:59 | PN ---
Teaching Attending Note Name of Resident: Tuan Dsouza ATTENDING PHYSICIAN STATEMENT I saw and evaluated the patient. I reviewed the resident's note and discussed the case with the resident. I agree with the resident's findings and plan as documented. SUBJECTIVE: Feels better - no CP/palpitations/SOB. No cough/sputum/ No fever/ chills. OBJECTIVE: Afebrile, Hemodynamicaly Stable. Last Vital Signs Temp Pulse Resp BP Pulse Ox 98.9 F 67 18 120/68 95 12/12/18 06:00 12/12/18 06:00 12/12/18 06:00 12/12/18 06:00 12/11/18 21:00 Heart - S1, S2, Irregular Lungs - clear to auscultation Abdomen - soft, non-tender. Bowel Sounds normal. Extremities - Chronic venous stasis skin changes, no calf tenderness Neuro - AAO x 3. Tone/Power normal all 4 extremities. Laboratory Results - last 24 hr 12/11/18 12/11/18 12/11/18 06:45 06:45 20:15 Sodium 128 L 132 L Potassium 3.4 L 3.9 Chloride 90 L 96 L Carbon Dioxide 22 27 Anion Gap 17 H 10 BUN 18.4 H 15.9 Creatinine 0.8 0.7 Est GFR (CKD-EPI)AfAm 78.47 92.21 Est GFR (CKD-EPI)NonAf 67.70 79.56 Random Glucose 137 H 124 H Hemoglobin A1c % 5.9 Calcium 9.0 8.1 L Phosphorus 3.3 Magnesium 1.9 Total Bilirubin 0.4 AST 29 ALT 28 Alkaline Phosphatase 83 Total Protein 8.1 Albumin 3.6 Triglycerides 47 Cholesterol 226 H Total LDL Cholesterol 130 H HDL Cholesterol 91 H TSH 0.30 L Free T4 1.40 12/12/18 12/12/18 02:55 06:13 Sodium 134 L Potassium 3.3 L Chloride 98 Carbon Dioxide 27 Anion Gap 8 BUN 13.9 Creatinine 0.6 Est GFR (CKD-EPI)AfAm 97.01 Est GFR (CKD-EPI)NonAf 83.70 Random Glucose 93 Hemoglobin A1c % Calcium 7.6 L Phosphorus Magnesium Total Bilirubin AST ALT Alkaline Phosphatase Total Protein Albumin Triglycerides Cholesterol Total LDL Cholesterol HDL Cholesterol TSH Free T4 1.20 Current Medications Generic Name Dose Route Start Last Admin Trade Name Freq PRN Reason Stop Dose Admin Apixaban 2.5 mg 12/11/18 22:00 12/12/18 10:00 Eliquis - PO 2.5 mg BID EUNICE Administration Diltiazem HCl 30 mg 12/11/18 08:40 12/12/18 05:49 Cardizem - PO 30 mg TID EUNICE Administration Latanoprost 1 drop 12/11/18 22:00 12/11/18 21:39 Xalatan 0.005% Eye Drops - OU 1 drop HS EUNICE Administration Metoprolol Succinate 200 mg 12/11/18 11:43 12/12/18 10:00 Toprol Xl - PO 200 mg DAILY EUNICE Administration Metoprolol Tartrate 5 mg 12/11/18 05:23 12/11/18 08:29 Lopressor Injection - IVPUSH 5 mg Q4H PRN Administration HYPERTENSION Non-Formulary Medication 1 drop 12/11/18 20:00 Latanoprostene Bunod [Vyzulta] OU DAILY [facility] Potassium Chloride 10 meq 12/11/18 10:00 12/12/18 10:00 K-Dur - PO 10 meq DAILY EUNICE Administration Potassium Chloride 40 meq 12/12/18 10:00 12/12/18 10:00 K-Dur - PO 12/12/18 22:01 40 meq BID [facility] Administration Timolol Maleate 1 drop 12/11/18 22:00 12/12/18 10:01 Timoptic 0.5% OU 1 drop BID EUNICE Administration Home Medications Medication Instructions Recorded Amlodipine Besylate 10 mg PO DAILY 12/11/18 Aspirin 81 mg PO DAILY 12/11/18 Hydrochlorothiazide [Hctz -] 50 mg PO DAILY 12/11/18 Latanoprostene Bunod [Vyzulta] 1 drop OU DAILY 12/11/18 Metoprolol Succinate [Toprol Xl] 1.5 tablet PO DAILY 12/11/18 Potassium Chloride 10 meq PO DAILY 12/11/18 Sertraline HCl [Zoloft -] 50 mg PO DAILY 12/11/18 Timolol 0.5% [Timoptic 0.5%] 1 drop OU BID 12/11/18 Travoprost [Travatan Z] 1 drop OU ACHS 12/11/18 ASSESSMENT AND PLAN: 83 year old female with history of HTN, Depression, presented with palpitations and found to have Atrial Fiibrillation with RVR. 1. Newly recognized Atrial Fibrillation with RVR ECG - Afib with RVR, no acute changes TropI neg TSH 0.65, free T4 1.2 Metoprolol XL increased to 200mg and Cardizem 30mg TID added. Telemonitoring Heparin drip transitioned to Eliquis 2.5mg BID Echo - normal. Medicaly optimized, awaiting final Cardio recs prior to discharge. 2. HTN - normally on Norvasc, HCTZ, and Toprol. Toprol dose increased. HCTZ and Norvasc discontinued. Cardizem added. 3. Depression - continue Zoloft 4. Hypokalemia - resolved. DVT Px - on Eliquis.
[2018-12-12 13:05] VITALS: BP 135/65; PULSE 78; TEMP 98
--- NOTE | 2018-12-12 13:35 | PN ---
Progress Note, Physician Chief Complaint: no complaints tele PAF converted to NSR. History of Present Illness: Patient is a 83 year old female with past medical history of HTN, glaucoma, fibroids (s/p hysterectomy) who presents to the ED with nausea since 2pm and 5 episodes of diarrhea. She also notes that she had an episode of rapid heart beat that lasted for about 30min. She felt weak, faint, and diaphoretic. She called a friend who was at the bedside. Per the friend the patient appeared diaphoretic, pale, and weak when she arrived at her home. On arrival in the ED the patient's EKG revealed atrial fibrillation with RVR. No chest pain, orthopnea, PND or edema. Baseline exercise tolerance is good. Echo 12/11/18 nlef she is concerned about dark stool. - Current Medication List Current Medications: Active Medications Apixaban (Eliquis -) 2.5 mg PO BID [facility] Last Admin: 12/12/18 10:00 Dose: 2.5 mg Diltiazem HCl (Cardizem -) 30 mg PO TID [facility] Last Admin: 12/12/18 05:49 Dose: 30 mg Latanoprost (Xalatan 0.005% Eye Drops -) 1 drop OU HS [facility] Last Admin: 12/11/18 21:39 Dose: 1 drop Metoprolol Succinate (Toprol Xl -) 200 mg PO DAILY [facility] Last Admin: 12/12/18 10:00 Dose: 200 mg Metoprolol Tartrate (Lopressor Injection -) 5 mg IVPUSH Q4H PRN PRN Reason: HYPERTENSION Last Admin: 12/11/18 08:29 Dose: 5 mg Non-Formulary Medication (Latanoprostene Bunod [Vyzulta]) 1 drop OU DAILY [facility] Potassium Chloride (K-Dur -) 10 meq PO DAILY [facility] Last Admin: 12/12/18 10:00 Dose: 10 meq Potassium Chloride (K-Dur -) 40 meq PO BID [facility] Stop: 12/12/18 22:01 Last Admin: 12/12/18 10:00 Dose: 40 meq Timolol Maleate (Timoptic 0.5%) 1 drop OU BID [facility] Last Admin: 12/12/18 10:01 Dose: 1 drop - Objective Vital Signs: Vital Signs Temperature 98 F 12/12/18 09:00 Pulse Rate 78 12/12/18 09:00 Respiratory Rate 18 12/12/18 09:00 Blood Pressure 135/65 12/12/18 09:00 O2 Sat by Pulse Oximetry (%) 95 12/12/18 09:00 Constitutional: Yes: No Distress, Calm Eyes: Yes: Conjunctiva Clear, EOM Intact HENT: Yes: Atraumatic, Pharyngeal Erythema Neck: Yes: Trachea Midline Cardiovascular: Yes: Pulse Irregular Respiratory: Yes: CTA Bilaterally Gastrointestinal: Yes: Normal Bowel Sounds, Soft Musculoskeletal: Yes: WNL Extremities: Yes: WNL Edema: No Peripheral Pulses WNL: Yes Labs: CBC, BMP 12/11/18 06:45 12/12/18 02:55 INR, PTT INR 1.20 (0.83-1.09) H 12/11/18 06:45 Assessment/Plan Patient is a 83 year old female with past medical history of HTN, glaucoma, fibroids (s/p hysterectomy) who presents to the ED with nausea since 2pm and 5 episodes of diarrhea. She also notes that she had an episode of rapid heart beat that lasted for about 30min. She felt weak, faint, and diaphoretic. She called a friend who was at the bedside. Per the friend the patient appeared diaphoretic, pale, and weak when she arrived at her home. On arrival in the ED the patient's EKG revealed atrial fibrillation with RVR. Plan: -guaiac stool, if positive hold eliquis and get GI evaluation. -TFT's normal -echo nlef -continue beta rosey PO -continue Eliquis 2.5 mg bid -change dilt to cd 120 mg daily
--- NOTE | 2018-12-12 16:21 | DS ---
Physical Exam: SUBJECTIVE: Patient seen and examined OBJECTIVE: Vital Signs Period Temp Pulse Resp BP Sys/Pan Pulse Ox Last 24 Hr 98 F-99.4 F 67-115 18-21 111-135/65-73 95-95 PHYSICAL EXAM GENERAL: awake, alert, and fully oriented, NAD HEAD: Normal with no signs of trauma. EYES: sclera anicteric, conjunctiva clear ENT: nares patent, moist mucous membranes. NECK: Trachea midline, full range of motion, supple. LUNGS: Breath sounds equal, clear to auscultation bilaterally, no wheezes, no crackles, no accessory muscle use. HEART: irregular rhythm, tachycardia; S1, S2 without murmur, rub or gallop. ABDOMEN: Soft, nontender, nondistended, normoactive bowel sounds, no guarding, no rebound. Scant dried black stool with green periphery in underwear EXTREMITIES: 2+ pulses, warm, well-perfused. Mild nonpitting edema of BLE. NEUROLOGICAL: Normal speech. SKIN: Warm, dry, normal turgor. Purpuric ecchymotic patch of distal LLE LABS Laboratory Results - last 24 hr 12/11/18 12/12/18 12/12/18 20:15 02:55 06:13 Sodium 132 L 134 L Potassium 3.9 3.3 L Chloride 96 L 98 Carbon Dioxide 27 27 Anion Gap 10 8 BUN 15.9 13.9 Creatinine 0.7 0.6 Est GFR (CKD-EPI)AfAm 92.21 97.01 Est GFR (CKD-EPI)NonAf 79.56 83.70 Random Glucose 124 H 93 Calcium 8.1 L 7.6 L Free T4 1.20 HOSPITAL COURSE: 83F with past medical history of HTN, glaucoma, fibroids (s/p hysterectomy) who presents to the ED with epigastric abd discomfort, nausea and 5 episodes of diarrhea w/a chest palpitations that lasted for about 30min. Recently, had ~1mo of intermittent chest palpitations last <30sec. Found to be in Afib w/ RVR(HR 130s) in the ED. Given lopressor 5mg IVP w/ improvement in HR, heparin gtt wa started. Cardiology increased home metoprolol from 150mg QD to 200mg QD. Primary teamed added cardizem 30mg q8h. Cardiology finalized regimen to be Eliquis 2.5mg, metoprol 200mg QD, cardizem CD 120mg. Patient had complaint of scant "black" stool in underwear. When counseled on possible EGD vs C-scope, patient refused. Worked with PT(60ft, with RW). HD stable. D/C home with home services. Date of Admission:12/10/18 Date of Discharge: 12/12/18 Minutes to complete discharge: 20 Discharge Summary Problems reviewed: Yes Reason For Visit: NEW ONSET ATRIAL FIBRILLATION Current Active Problems New onset a-fib (Acute) Condition: Stable - Instructions Diet, Activity, Other Instructions: You were evaluated in the hospital for nausea with prolonged chest palpitations. An EKG showed that you had atrial fibrillation(ie. rapid and irregular heart beat). A rib puller evaluated you and medications were adjusted to control your irregular heart rhythm. You received blood thinning medications to prevent clot formation in your heart. Medications: - NEW medications: --Apixaban[ELIQUIS]: take 2.5mg twice a day --Diltiazem HCl[CARDIZEM CD]: 120mg once a day --Metoprolol Succinate[TOPROL XL]: increased to 200mg once a day - CHANGE in medications: --STOP taking amlodipine, hydrochlorothiazide, aspirin - resume your other home medications Please follow-up with the following physicians below: - Primary care physician (Dr. Alberts) within 1 week: to discuss your hospitalization - Sugar Refinery Supervisor(Dr Renae) within 1-2 weeks: for continued discussion of Atrial Fibrillation Additional instructions: - heart healthy diet(low sugar, low fat, high fiber) - normal activity as tolerated Please seek immediate medical evaluation or go to the Emergency Department if you experience: - severe chest pain, shortness of breath, chest palpitations - bloody bowel movements, severe abdominal pain, fatigue Referrals: Omari Renae MD [Staff Physician] - 1 Week (atrial fibrillation) Osman Alberts MD [Staff Physician] - 1 Week (hospital follow up for a.fib) Disposition: VNS/HOME HEALTH CARE - Home Medications Comprehensive Discharge Medication List: Ambulatory Orders Latanoprostene Bunod [Vyzulta] 1 drop OU DAILY 12/11/18 Potassium Chloride 10 meq PO DAILY 12/11/18 Sertraline HCl [Zoloft -] 50 mg PO DAILY 12/11/18 Timolol 0.5% [Timoptic 0.5%] 1 drop OU BID 12/11/18 Travoprost [Travatan Z] 1 drop OU ACHS 12/11/18 Apixaban [Eliquis -] 2.5 mg PO BID #60 tablet 12/12/18 Diltiazem Cd [Cardizem Cd -] 120 mg PO DAILY #30 cap.cd.24h 12/12/18 Metoprolol Succinate [Toprol XL -] 200 mg PO DAILY #60 tab.sr.24h 12/12/18 This patient is new to me today: No Emergency Visit: No Critical Care patient: No - Discharge Referral Referred to [facility] Med [facility].C[facility] No ATTENDING PHYSICIAN STATEMENT I saw and evaluated the patient. I reviewed the resident's note and discussed the case with the resident. I agree with the resident's findings and plan as documented. SUBJECTIVE: OBJECTIVE: ASSESSMENT AND PLAN:
[2018-12-13 09:54] LABS: MAGNESIUM 1.6 mg/dL (1.8-2.4); PHOSPHOROUS 2.2 mg/dL (2.5-4.9)
== END 2018-12-12 16:43 | disposition home health service (06) | DRG 309 ==
LOC: JER 22:10 → JERBED 23:49 → J4W 12-11 03:23
PROVIDERS: ADMIT Internal Medicine
DX: I48.91 Unspecified atrial fibrillation (principal); E87.1 Hypo-osmolality and hyponatremia; I10 Essential (primary) hypertension; H40.9 Unspecified glaucoma; E78.5 Hyperlipidemia, unspecified; F32.9 Major depressive disorder, single episode, unspecified; E87.6 Hypokalemia
CPT/HCPCS: 36415; 71045-TC-FY; 80048; 80053; 80061; 81003; 82550; 83036; 83605; 83690; 83721; 83735; 83880; 84100; 84439; 84443; 84481; 84484; 85025; 85610; 85730; 86850; 86900; 86901; 87086; 87186; 93005; 93010; 93306-TC; 97116-GP; 97161-GP; 99285-25; J1644; J7030

== ENCOUNTER 2019-02-02 19:29 | Inpatient (IN) | payer OTHER ==
--- NOTE | 2019-02-02 20:59 | PDOC ---
Documentation entered by Ihsan Fitzgerald SCRIBE, acting as scribe for Sally Welsh MD. Sally Welsh MD: This documentation has been prepared by the Amilcar ramsey Daniel, SCRIBE, under my direction and personally reviewed by me in its entirety. I confirm that the documentation accurately reflects all work, treatment, procedures, and medical decision making performed by me. Attending Attestation - Resident Resident Name: Chetan Welsh - ED Attending Attestation I have performed the following: I have examined & evaluated the patient, The case was reviewed & discussed with the resident, I agree w/resident's findings & plan, Exceptions are as noted - HPI HPI: 02/02/19 21:10 The patient is an 83 year old female with a past medical history of HTN and afib (eliquis) here today for evaluation of substernal chest discomfort. The patient reports that since this afternoon she has had substernal, 3/10, dull, aching chest discomfort that radiates to her left back. She also notes some nausea and vomiting that started 30 minutes prior to arrival. Patient denies headache, lightheadedness. Denies fever, chills. Denies shortness of breath. Denies diarrhea, abdominal pain. Allergies: NKA PCP: Neptali Alberts - Physicial Exam PE: 02/03/19 00:36 Slender alert 83-year-old female comes in with complaint of abdominal discomfort with nausea and vomiting Head normocephalic atraumatic Neck is supple Lungs clear to auscultation bilaterally CVS regular rate rhythm S1-S2 Abdomen no rebound or guarding Skin warm and dry Extremities +2 pitting edema Neuro alert conversant - Medical Decision Making 02/03/19 00:37 CBC was unremarkable Patient is afebrile Troponin is negative Patient was given Zofran and then Reglan for nausea and vomiting 02/03/19 02:04 ct scan of abd/pel pending
[2019-02-02] MEDS ORDERED: ONDANSETRON 4 MG/2 ML VIAL IVPB ONE (21:13)
[2019-02-02] MEDS ORDERED: ONDANSETRON 4 MG/2 ML VIAL ONE (21:51)
--- NOTE | 2019-02-02 22:26 | PDOC ---
History of Present Illness - General Chief Complaint: Pain Stated Complaint: ABDOMINAL PAIN Time Seen by Provider: 02/02/19 20:17 History Source: Patient, Family Exam Limitations: No Limitations - History of Present Illness Initial Comments: 83 y/o F, pmh of A-fib on eliquis, HTN, glaucoma, presents to the ED c/o of constant, dull aching, 3/10 substernal chest pain radiating to the left scapula of few hour duration that persisted since onset, accompanied by one episode of brown vomitus and nausea. Pt reports that symptoms spontaneously began after her meal, during which she had acid reflux as well. She was admitted at [facility] 2 months ago for similar symptoms during which EKG showed A fib w/ rvr and pt was treated and sent home on eliquis, Cardizem and toprol. In the ED pt was given zofran for nausea, EKG was nsr 02/02/19 22:14 Associated Symptoms: reports: denies symptoms, chest pain. denies: cough, diaphoresis Past History - Past Medical History Allergies/Adverse Reactions: Allergies Allergy/AdvReac Type Severity Reaction Status Date / Time No Known Allergies Allergy Verified 02/02/19 21:20 Home Medications: Ambulatory Orders Latanoprostene Bunod [Vyzulta] 1 drop OU DAILY 12/11/18 Timolol 0.5% [Timoptic 0.5%] 1 drop OU BID 12/11/18 Travoprost [Travatan Z] 1 drop OU ACHS 12/11/18 Apixaban [Eliquis -] 2.5 mg PO BID #60 tablet 12/12/18 Diltiazem Cd [Cardizem Cd -] 120 mg PO DAILY #30 cap.cd.24h 12/12/18 Metoprolol Succinate [Toprol XL -] 200 mg PO DAILY #60 tab.sr.24h 12/12/18 COPD: No HTN: Yes - Psycho Social/Smoking Cessation Hx Smoking History: Never smoked Have you smoked in the past 12 months: No Hx Alcohol Use: No Drug/Substance Use Hx: No *Physical Exam - Vital Signs Last Vital Signs Temp Pulse Resp BP Pulse Ox 98.1 F 77 20 188/90 H 97 02/02/19 20:00 02/02/19 20:00 02/02/19 20:00 02/02/19 20:00 02/02/19 20:00 ED Treatment Course - LABORATORY CBC & Chemistry Diagram: 02/02/19 22:20 02/02/19 21:46 - RADIOLOGY Radiology Studies Ordered: Category Date Time Status CXRPORT [CHEST X-RAY PORTABLE*] [RAD] Stat Radiology 02/02/19 20:53 Taken Medical Decision Making - Medical Decision Making 83 y/o F, pmh of A-fib on eliquis, HTN, glaucoma, presents to the ED c/o of constant, dull aching, 3/10 substernal chest pain radiating to the left scapula of few hour duration that persisted since onset, accompanied by one episode of brown vomitus and nausea #Substernal Chest pain r/o ACS EKG nsr, rate and rhythm normal Trops pending cardiac profile CBC, CMP pending CT a/p ordered Zofran and compazine given for nausea IVF 1L #Vomiting bilious vomiting CT to r/o SBO will cont to hydrate 02/02/19 23:47 02/02/19 23:48 Discharge - Follow up/Referral Referrals: Neptali Alberts MD [Primary Care Provider] - - Patient Discharge Instructions - Post Discharge Activity
[2019-02-02 22:29] LABS: HEMATOCRIT 38.9 % (32.4-45.2); HEMOGLOBIN 12.9 GM/dL (10.7-15.3); MCH 31.9 pg (25.7-33.7); MCHC 33.1 g/dl (32.0-36.0); MEAN CELL VOLUME 96.5 fl (80-96); MEAN PLT VOLUME 7.8 fl (7.5-11.1); PLATELET COUNT 257 K/MM3 (134-434); RBC 4.03 M/mm3 (3.60-5.2); RDW 13.3 % (11.6-15.6); WHITE BLOOD COUNT 8.1 K/mm3 (4.0-10.0)
[2019-02-02 22:41] LABS: INR 1.19 (0.83-1.09); PROTHROMBIN TIME (PATIENT) 14.1 SEC (9.7-13.0)
[2019-02-02] MEDS ORDERED: SODIUM CHLORIDE 0.9% 500 ML INFUS.BAG IV ONE (22:46)
[2019-02-02] MEDS ORDERED: PROCHLORPERAZINE INJECTION 10 MG/2 ML VIAL IVPB ONE (22:47)
[2019-02-02 23:01] LABS: ALK PHOS 97 U/L (45-117); ANION GAP 5 MMOL/L (8-16); BILIRUBIN,TOTAL 0.3 mg/dL (0.2-1); BLOOD UREA NITROGEN 16.2 mg/dL (7-18); CALCIUM 9.9 mg/dL (8.5-10.1); CHLORIDE 94 mmol/L (98-107); CO2 36 mmol/L (21-32); CREATININE 0.8 mg/dL (0.55-1.3); GLUCOSE,RANDOM 146 mg/dL (74-106); SGOT/AST 17 U/L (15-37); SGPT/ALT 20 U/L (13-61); SODIUM 135 mmol/L (136-145); TOT PROT 8.4 g/dl (6.4-8.2)
[2019-02-02] MEDS ORDERED: PROCHLORPERAZINE INJECTION 10 MG/2 ML VIAL ONE (23:15)
--- NOTE | 2019-02-03 00:37 | PDOC ---
*Physical Exam - Vital Signs Last Vital Signs Temp Pulse Resp BP Pulse Ox 98.1 F 77 20 188/90 H 97 02/02/19 20:00 02/02/19 20:00 02/02/19 20:00 02/02/19 20:00 02/02/19 20:00 ED Treatment Course - LABORATORY CBC & Chemistry Diagram: 02/02/19 22:20 02/02/19 21:46 - ADDITIONAL ORDERS Additional order review: Laboratory Results 02/02/19 02/02/19 22:20 21:46 PT with INR 14.10 H INR 1.19 H Sodium 135 L Potassium 4.0 Chloride 94 L Carbon Dioxide 36 H Anion Gap 5 L BUN 16.2 Creatinine 0.8 Est GFR (CKD-EPI)AfAm 78.47 Est GFR (CKD-EPI)NonAf 67.70 Random Glucose 146 H Calcium 9.9 Total Bilirubin 0.3 AST 17 ALT 20 Alkaline Phosphatase 97 Creatine Kinase 76 Troponin I < 0.02 Total Protein 8.4 H Albumin 4.0 02/02/19 22:20 RBC 4.03 MCV 96.5 H MCHC 33.1 RDW 13.3 MPV 7.8 - Medications Given in the ED: ED Medications Discontinued Medications Generic Name Dose Route Start Last Admin Trade Name Freq PRN Reason Stop Dose Admin Ondansetron HCl 8 mg 02/02/19 21:13 02/02/19 22:12 Zofran Injection IVPB 02/02/19 21:14 8 mg ONCE ONE Administration Prochlorperazine Edisylate 10 mg 02/02/19 22:47 02/02/19 23:27 Compazine Injection - IVPB 02/02/19 22:48 10 mg ONCE ONE Administration Sodium Chloride 1,000 ml 02/02/19 22:46 02/02/19 23:27 Normal Saline - IV 02/02/19 22:47 1,000 ml ONCE ONE Administration Medical Decision Making - Medical Decision Making 02/03/19 00:36 - F/u CT - Troponin negative - Responded well to compazine Dispo: Likely admission 02/03/19 02:21 - Pt at CT - Repeat troponin Dispo: likely home with Reglan if patient well appearing and CT negative 02/03/19 02:45 -Bladder prolapse and possible neurogenic changes. Mild left hydroureter without stones could be related to prolapse and neurogenic bladder. Proximal small bowel obstruction without abscess or free air and probable right midabdomen transition point of uncertain etiology. 02/03/19 03:11 -Spoke with Dr. Randhawa, he will see the patient in the AM, asked for NG tube placement Dispo: Admit Tele for Hx Afib 02/03/19 03:23 - Patient endorsed to hospitalist coverage for Dr. Reyes, Admitted under Dr. Neptali Alberts 02/03/19 03:30 - NG tube placed, auscultated in stomach, minimal fluid return, patient became agitated, pulled the tube - Patient A&Ox3, understands risks and benefits, refuses NG tube replacement - Abdomen is non-distended, no nausea at the current time, almost no return of bile upon tube placement Discharge - Discharge Information Problems reviewed: Yes Clinical Impression/Diagnosis: Small bowel obstruction Condition: Guarded - Admission Yes - Follow up/Referral - Patient Discharge Instructions - Post Discharge Activity
[2019-02-03] MEDS: SODIUM CHLORIDE 1,000 ML IV SCH (04:07)
--- NOTE | 2019-02-03 04:17 | HP ---
CHIEF COMPLAINT: midepigastric abdominal pain with vomiting PCP:Dr. Alberts HISTORY OF PRESENT ILLNESS: 83 year old female with history of atrial fibrillation on eliquis(last dose on 02/02, unable to tell me if took pm dose), hypertension, and glaucoma who presents with symptoms of mid epigastric pain associated with an episode of brown vomitus and nausea. She reported her last BM was on 02/02/2019. She denied fever, chest pain, shortness of breath. In the ED pt was given zofran for nausea. ER course was notable for CT scan of abdomen demonstrating a proximal SBO. Surgery-Dr. Alvarenga was called and he recommended placement of nasogastric tube. NG tube was attempted by ER team but patient was not able to tolerate nasogastric tube and pulled tube out and refusing NG tube at this time. She denies symptoms of chest pain, shortness of breath, nausea vomiting or abdominal pain at this time. She is currently afebrile and hemodynamically stable. Lab findings with a normal WBC and lactic acid level. Recent Travel: no PAST MEDICAL HISTORY: atrial fibrillation hypertension glaucoma PAST SURGICAL HISTORY: Social History: Smoking:no Alcohol:no Drugs: no Allergies No Known Allergies Allergy (Verified 02/02/19 21:20) HOME MEDICATIONS: Home Medications Medication Instructions Recorded Latanoprostene Bunod [Vyzulta] 1 drop OU DAILY 12/11/18 Timolol 0.5% [Timoptic 0.5%] 1 drop OU BID 12/11/18 Travoprost [Travatan Z] 1 drop OU ACHS 12/11/18 Apixaban [Eliquis -] 2.5 mg PO BID #60 tablet 12/12/18 Diltiazem Cd [Cardizem Cd -] 120 mg PO DAILY #30 cap.cd.24h 12/12/18 Metoprolol Succinate [Toprol XL -] 200 mg PO DAILY #60 tab.sr.24h 12/12/18 REVIEW OF SYSTEMS CONSTITUTIONAL: Absent: fever, chills, diaphoresis, generalized weakness, malaise, loss of appetite, weight change HEENT: Absent: rhinorrhea, nasal congestion, throat pain, throat swelling, difficulty swallowing, mouth swelling, ear pain, eye pain, visual changes CARDIOVASCULAR: Absent: chest pain, syncope, palpitations, irregular heart rate, lightheadedness , peripheral edema RESPIRATORY: Absent: cough, shortness of breath, dyspnea with exertion, orthopnea, wheezing, stridor, hemoptysis GASTROINTESTINAL: Absent: abdominal pain, abdominal distension, nausea, vomiting, diarrhea, constipation, melena, hematochezia GENITOURINARY: Absent: dysuria, frequency, urgency, hesitancy, hematuria, flank pain, genital pain MUSCULOSKELETAL: Absent: myalgia, arthralgia, joint swelling, back pain, neck pain SKIN: Absent: rash, itching, pallor HEMATOLOGIC/IMMUNOLOGIC: Absent: easy bleeding, easy bruising, lymphadenopathy, frequent infections ENDOCRINE: Absent: unexplained weight gain, unexplained weight loss, heat intolerance, cold intolerance NEUROLOGIC: Absent: headache, focal weakness or paresthesias, dizziness, unsteady gait, seizure, mental status changes, bladder or bowel incontinence PSYCHIATRIC: Absent: anxiety, depression, suicidal or homicidal ideation, hallucinations. PHYSICAL EXAMINATION Vital Signs - 24 hr 02/02/19 20:00 Temperature 98.1 F Pulse Rate 77 Respiratory 20 Rate Blood Pressure 188/90 H O2 Sat by Pulse 97 Oximetry (%) GENERAL: awake alert and fully oriented no acute distress HEAD: normal EYES: pupils equal round and reactive to light extraocular movements intact EARS, NOSE, THROAT: ears normal nares patent oropharynx clear without exudates NECK: normal range of motion LUNGS: breath sounds equal and clear to auscultation bilaterally no wheezes no crackles no accessory muscle use HEART: regular rate and rhythm normal S1 and S2 ABDOMEN: nontender on light palpation, distended MUSCULOSKELETAL: normal range of motion UPPER EXTREMITIES: 2+ pulses warm well-perfused no cyanosis LOWER EXTREMITIES: 2+ pulses warm mild lower extremity edema with redness NEUROLOGICAL: no facial grimace no facial droop speech clear moving upper and lower extremities PSYCHIATRIC: cooperative good eye contact appropriate mood SKIN: warm and dry to palpation Laboratory Results - last 24 hr 02/02/19 02/02/19 02/02/19 21:46 22:20 22:20 WBC 8.1 RBC 4.03 Hgb 12.9 Hct 38.9 MCV 96.5 H MCH 31.9 MCHC 33.1 RDW 13.3 Plt Count 257 MPV 7.8 PT with INR 14.10 H INR 1.19 H Sodium 135 L Potassium 4.0 Chloride 94 L Carbon Dioxide 36 H Anion Gap 5 L BUN 16.2 Creatinine 0.8 Est GFR (CKD-EPI)AfAm 78.47 Est GFR (CKD-EPI)NonAf 67.70 Random Glucose 146 H Lactic Acid Calcium 9.9 Total Bilirubin 0.3 AST 17 ALT 20 Alkaline Phosphatase 97 Creatine Kinase 76 Troponin I < 0.02 Total Protein 8.4 H Albumin 4.0 02/03/19 01:15 WBC RBC Hgb Hct MCV MCH MCHC RDW Plt Count MPV PT with INR INR Sodium Potassium Chloride Carbon Dioxide Anion Gap BUN Creatinine Est GFR (CKD-EPI)AfAm Est GFR (CKD-EPI)NonAf Random Glucose Lactic Acid 1.5 Calcium Total Bilirubin AST ALT Alkaline Phosphatase Creatine Kinase Troponin I Total Protein Albumin ASSESSMENT/PLAN: 83 year old female with history of atrial fibrillation on eliquis(last dose on 02/02, unable to tell me if took pm dose), hypertension, and glaucoma who presents with symptoms of mid epigastric pain associated with an episode of brown vomitus and nausea. CT scan of abdomen demonstrated a proximal SBO. Patient was admitted to Medicine Team for further evaluation/treatment for SBO. 1. SBO Surgery-Dr. Alvarenga was called by ER team and recommended a nasogastric tube. NG tube was attempted by ER team but patient was not able to tolerate nasogastric tube and took NG tube out and refusing NG tube at this time. Surgery will evaluate patient in the am. --NPO --Continue with IVF NS@75cc/hr --Continue with antiemetics prn, monitor QTc interval 2. Atrial Fibrillation Rate controlled --Continue with Toprol 200 mg once daily and Cardziem 120mg once daily --Eliquis on hold in case surgery is warranted (last dose 02/02, patient unable to tell me if she took pm dose) 3. Hypertension Uncontrolled -- Continue with Toprol and Cardizem -- Continue to monitor closely FEN IVF NS@ 75cc/hr monitor electrolytes closely NPO DVT Prophylaxsis TEDS/SCD's Visit type - Emergency Visit Emergency Visit: Yes ED Registration Date: 02/03/19 Care time: The patient presented to the Emergency Department on the above date and was hospitalized for further evaluation of their emergent condition. - New Patient This patient is new to me today: Yes Date on this admission: 02/03/19 - Critical Care Critical Care patient: No
[2019-02-03] MEDS ORDERED: PATIENT'S OWN MEDICATION (NON-FORMULARY) (Travoprost [Travatan Z] 1 DROP) OU SCH (07:00)
[2019-02-03 09:55] LABS: BASO % 0.4 % (0-2.0); HEMATOCRIT 36.7 % (32.4-45.2); HEMOGLOBIN 12.3 GM/dL (10.7-15.3); LYMPH % 11.9 % (8-40); MCH 32.2 pg (25.7-33.7); MCHC 33.4 g/dl (32.0-36.0); MEAN CELL VOLUME 96.3 fl (80-96); MEAN PLT VOLUME 7.7 fl (7.5-11.1); MONO % 5.9 % (3.8-10.2); NEUT % 81.8 % (42.8-82.8); PLATELET COUNT 247 K/MM3 (134-434); RBC 3.81 M/mm3 (3.60-5.2); RDW 12.9 % (11.6-15.6); WHITE BLOOD COUNT 7.4 K/mm3 (4.0-10.0)
[2019-02-03] MEDS ORDERED: LATANOPROSTENE BUNOD OU SCH (10:00)
--- NOTE | 2019-02-03 10:15 | EKG ---
Test Reason : Blood Pressure : / mmHG Vent. Rate : 071 BPM Atrial Rate : 071 BPM P-R Int : 148 ms QRS Dur : 074 ms QT Int : 396 ms P-R-T Axes : 042 013 054 degrees QTc Int : 430 ms NORMAL SINUS RHYTHM NORMAL ECG Confirmed by Omari Renae MD ([id number]) on 02/03/2019 10:14:54 AM Referred By: Confirmed By:Omari Renae MD
--- NOTE | 2019-02-03 11:11 | CONSULT ---
- Consultation REQUESTING PROVIDER: CONSULT REQUEST: We have been asked to surgically evaluate this patient for partial SBO PCP:Osman Alberts HISTORY OF PRESENT ILLNESS: 83 year old female with history of atrial fibrillation on eliquis (last dose on 02/02, unable to tell me if took pm dose) , hypertension, and glaucoma who presents with symptoms of mid epigastric pain associated with one episode of brown vomitus and nausea. She reported her last BM was on 02/02/2019. She denied fever, chest pain, shortness of breath. In the ED pt was given zofran for nausea. ER course was notable for CT scan of abdomen demonstrating a proximal SBO. Surgery-Dr. Alvarenga was called and he recommended placement of nasogastric tube. NG tube was attempted by ER team but patient was not able to tolerate nasogastric tube and pulled tube out and refusing NG tube at this time. She denies symptoms of chest pain, shortness of breath, nausea vomiting or abdominal pain at this time. She is currently afebrile and hemodynamically stable. Lab findings with a normal WBC and lactic acid level. Recent Travel: no PAST MEDICAL HISTORY: atrial fibrillation hypertension glaucoma PAST SURGICAL HISTORY: Total abdominal hysterectomy-vertical incision Social History: Smoking:no Alcohol:no Drugs: no Allergies No Known Allergies Allergy (Verified 02/02/19 21:20) HOME MEDICATIONS: Home Medications Medication Instructions Recorded Latanoprostene Bunod [Vyzulta] 1 drop OU DAILY 12/11/18 Timolol 0.5% [Timoptic 0.5%] 1 drop OU BID 12/11/18 Travoprost [Travatan Z] 1 drop OU ACHS 12/11/18 Apixaban [Eliquis -] 2.5 mg PO BID #60 tablet 12/12/18 Diltiazem Cd [Cardizem Cd -] 120 mg PO DAILY #30 cap.cd.24h 12/12/18 Metoprolol Succinate [Toprol XL -] 200 mg PO DAILY #60 tab.sr.24h 12/12/18 REVIEW OF SYSTEMS CONSTITUTIONAL: Absent: fever, chills, diaphoresis, generalized weakness, malaise, loss of appetite, weight change HEENT: Absent: rhinorrhea, nasal congestion, throat pain, throat swelling, difficulty swallowing, mouth swelling, ear pain, eye pain, visual changes CARDIOVASCULAR: Absent: chest pain, syncope, palpitations, irregular heart rate, lightheadedness , peripheral edema RESPIRATORY: Absent: cough, shortness of breath, dyspnea with exertion, orthopnea, wheezing, stridor, hemoptysis GASTROINTESTINAL: Absent: abdominal pain, +abdominal distension, nausea, vomiting, diarrhea, constipation, melena, hematochezia GENITOURINARY: Absent: dysuria, frequency, urgency, hesitancy, hematuria, flank pain, genital pain MUSCULOSKELETAL: Absent: myalgia, arthralgia, joint swelling, back pain, neck pain SKIN: Absent: rash, itching, pallor HEMATOLOGIC/IMMUNOLOGIC: Absent: easy bleeding, easy bruising, lymphadenopathy, frequent infections ENDOCRINE: Absent: unexplained weight gain, unexplained weight loss, heat intolerance, cold intolerance NEUROLOGIC: Absent: headache, focal weakness or paresthesias, dizziness, unsteady gait, seizure, mental status changes, bladder or bowel incontinence PSYCHIATRIC: Absent: anxiety, depression, suicidal or homicidal ideation, hallucinations. PHYSICAL EXAMINATION Vital Signs Temp 98.1 F 02/02/19 20:00 Pulse 77 02/02/19 20:00 Resp 20 02/02/19 20:00 BP 188/90 H 02/02/19 20:00 Pulse Ox 97 02/02/19 20:00 Intake & Output 02/02/19 02/02/19 02/03/19 11:59 23:59 11:59 Weight 123 lb Other: Voiding Method Toilet Height 5 ft 5 in Body Mass Index (BMI) 20.5 Weight Measurement Method Est/Stated by Patient GENERAL: awake alert and fully oriented no acute distress HEAD: normal EYES: pupils equal round and reactive to light LUNGS: unlabored resp on RA, no accessory muscle use ABDOMEN: nontender on light palpation, + distended, no palpable masses or oganomegaly, no rashes or lesions, well healed vertical scar over Left lateral quadrant MUSCULOSKELETAL: moving all extremities without limitation. UPPER EXTREMITIES: no edema, warm well-perfused LOWER EXTREMITIES: 2+ DP pulses warm mild lower extremity edema with chronic skin changes. no signs of cellulitis. NEUROLOGICAL: no facial grimace no facial droop speech clear moving upper and lower extremities PSYCHIATRIC: cooperative good eye contact appropriate mood SKIN: warm and dry to palpation CBC, BMP 02/03/19 09:35 INR, PTT INR 1.19 (0.83-1.09) H 02/02/19 22:[address] 02/03/19 02:45 -Bladder prolapse and possible neurogenic changes. Mild left hydroureter without stones could be related to prolapse and neurogenic bladder. Proximal small bowel obstruction without abscess or free air and probable right midabdomen transition point of uncertain etiology. 02/03/19 03:30 - NG tube placed, auscultated in stomach, minimal fluid return, patient became agitated, pulled the tube - Patient A&Ox3, understands risks and benefits, refuses NG tube replacement - Abdomen is non-distended, no nausea at the current time, almost no return of bile upon tube placement Problem List - Problems (1) Small bowel obstruction Assessment/Plan: ASSESSMENT/PLAN: 83 year old female with history of atrial fibrillation on eliquis(last dose on 02/02, unable to tell me if took pm dose), hypertension, and glaucoma who presents with symptoms of mid epigastric pain associated with an episode of brown vomitus and nausea. CT scan of abdomen demonstrated a proximal SBO. Patient is currently stable. Patient was admitted to Medicine Team for further evaluation/treatment for SBO. -RPT ABD CT scan with oral contrast -Anticoagulation while holding eliquis -NPO -Continue with IVF NS@75cc/hr -Continue with antiemetics prn, monitor QTc interv -NGT placement if symptoms worsen or develops vomiting. Evaluation and plan discussed with Dr Wen Code(s): K56.609 - UNSP INTESTNL OBST, UNSP TO PARTIAL VERSUS COMPLETE OBST
--- NOTE | 2019-02-03 11:17 | HP ---
Admitting History and Physical - Admission Chief Complaint: n/v last am after breafest w abd epigastric pain local scale of 6. pt h/o amanda bso sc only htn seen in my ioffice 2 days ago great bconditionb History Source: Patient Limitations to Obtaining History: No Limitations - Past Medical History Cardiovascular: Yes: HTN Gastrointestinal: Yes: Other (sbo) ...: No Rheumatology: Yes: Other (fx ? t/c) - Past Surgical History Additional Past Surgical History: amanda bso - Smoking History Smoking history: Never smoked Have you smoked in the past 12 months: No - Alcohol/Substance Use Hx Alcohol Use: No - Social History Usual Living Arrangement: Yes: Alone Home Medications - Allergies Allergies/Adverse Reactions: Allergies Allergy/AdvReac Type Severity Reaction Status Date / Time No Known Allergies Allergy Verified 02/02/19 21:20 - Home Medications Home Medications: Ambulatory Orders Latanoprostene Bunod [Vyzulta] 1 drop OU DAILY 12/11/18 Timolol 0.5% [Timoptic 0.5%] 1 drop OU BID 12/11/18 Travoprost [Travatan Z] 1 drop OU ACHS 12/11/18 Apixaban [Eliquis -] 2.5 mg PO BID #60 tablet 12/12/18 Diltiazem Cd [Cardizem Cd -] 120 mg PO DAILY #30 cap.cd.24h 12/12/18 Metoprolol Succinate [Toprol XL -] 200 mg PO DAILY #60 tab.sr.24h 12/12/18 Family Medical History Family History: Unremarkable Review of Systems - Review of Systems Constitutional: reports: Other (abd pain) Eyes: reports: No Symptoms HENT: reports: No Symptoms Neck: reports: No Symptoms Cardiovascular: reports: No Symptoms Respiratory: reports: No Symptoms Gastrointestinal: reports: Abdominal Pain Genitourinary: reports: No Symptoms Breasts: reports: No Symptoms Reported, Pain Musculoskeletal: reports: No Symptoms Integumentary: reports: No Symptoms Neurological: reports: No Symptoms Endocrine: reports: No Symptoms Hematology/Lymphatic: reports: No Symptoms Psychiatric: reports: No Symptoms Physical Examination Vital Signs: Vital Signs Temperature 98.1 F 02/02/19 20:00 Pulse Rate 77 02/02/19 20:00 Respiratory Rate 20 02/02/19 20:00 Blood Pressure 188/90 H 02/02/19 20:00 O2 Sat by Pulse Oximetry (%) 97 02/02/19 20:00 Constitutional: Yes: Well Nourished Eyes: Yes: WNL HENT: Yes: WNL Neck: Yes: WNL Cardiovascular: Yes: WNL Respiratory: Yes: WNL Gastrointestinal: Yes: Hemorrhoids, Tenderness, Epigastrium, Other (tympanic distended) ...Rectal Exam: Yes: Other (sx to do) Renal/: Yes: WNL Breast(s): Yes: WNL Musculoskeletal: Yes: WNL Extremities: Yes: WNL Edema: No Peripheral Pulses WNL: Yes Integumentary: Yes: WNL Neurological: Yes: WNL ...Motor Strength: WNL Psychiatric: Yes: WNL Labs: CBC, BMP 02/03/19 09:35 Assessment/Plan place pt on tely sx evaluation iv ppi npo ngt placement no antibiotics /yet dvt nipt adsmitt ? gi later if needed
[2019-02-03 11:25] LABS: ALBUMIN 3.6 g/dl (3.4-5.0); ALK PHOS 88 U/L (45-117); ANION GAP 8 MMOL/L (8-16); BILIRUBIN,TOTAL 0.3 mg/dL (0.2-1); BLOOD UREA NITROGEN 12.4 mg/dL (7-18); CALCIUM 8.9 mg/dL (8.5-10.1); CHLORIDE 100 mmol/L (98-107); CO2 29 mmol/L (21-32); CREATININE 0.7 mg/dL (0.55-1.3); GLUCOSE,RANDOM 127 mg/dL (74-106); POTASSIUM 3.5 mmol/L (3.5-5.1); SGOT/AST 23 U/L (15-37); SGPT/ALT 17 U/L (13-61); SODIUM 137 mmol/L (136-145); TOT PROT 7.8 g/dl (6.4-8.2)
--- NOTE | 2019-02-03 12:39 | PN ---
Progress Note (short form) - Note Progress Note: surgery pt seen and examined. full consult dictated. 83f with previous amanda, with poss psbo from adhesions. refusing necessary ngt. on eliquis. suboptimal ct without oral contrast. no clinical signs of compromise on exam. recommend ngt- pt refuses repeat ct with oral contrast (ngt would help this but pt refusing and will try to drink) hold eliquis may need surgery later in week if no improvement pt understands that conservative mgmt less likely to succeed without ngt no evidence of bowel compromise
[2019-02-03 14:41] VITALS: BMI 22.4
--- NOTE | 2019-02-03 15:45 | EKG ---
Test Reason : Blood Pressure : / mmHG Vent. Rate : 086 BPM Atrial Rate : 086 BPM P-R Int : 144 ms QRS Dur : 074 ms QT Int : 382 ms P-R-T Axes : 052 034 055 degrees QTc Int : 457 ms NORMAL SINUS RHYTHM NORMAL ECG WHEN COMPARED WITH ECG OF 02-FEB-2019 21:14, NO SIGNIFICANT CHANGE WAS FOUND Confirmed by MD Emerson Daniel ([id number]) on 02/03/2019 3:45:17 PM Referred By: YANG GARCIA Confirmed By:Ihsan Emerson MD
[2019-02-04 07:07] LABS: BASO % 0.4 % (0-2.0); EOS % 1.2 % (0-4.5); HEMATOCRIT 32.2 % (32.4-45.2); LYMPH % 25.7 % (8-40); MCH 32.6 pg (25.7-33.7); MCHC 34.1 g/dl (32.0-36.0); MEAN CELL VOLUME 95.7 fl (80-96); MEAN PLT VOLUME 7.4 fl (7.5-11.1); NEUT % 62.7 % (42.8-82.8); PLATELET COUNT 192 K/MM3 (134-434); RBC 3.37 M/mm3 (3.60-5.2); WHITE BLOOD COUNT 6.8 K/mm3 (4.0-10.0)
[2019-02-04 07:43] LABS: ALBUMIN 2.9 g/dl (3.4-5.0); BILIRUBIN,TOTAL 0.4 mg/dL (0.2-1); BLOOD UREA NITROGEN 10.5 mg/dL (7-18); CREATININE 0.5 mg/dL (0.55-1.3); POTASSIUM 3.1 mmol/L (3.5-5.1); TOT PROT 6.2 g/dl (6.4-8.2)
[2019-02-04] MEDS ORDERED: PT OWN MED DRAWER 7, Y5N ONE (09:32)
[2019-02-04] MEDS: SODIUM CHLORIDE 1,000 ML IV SCH (10:13)
[2019-02-04] MEDS: PANTOPRAZOLE SODIUM 40 MG VIAL IVPUSH SCH (10:15)
[2019-02-04] MEDS ORDERED: D5-1/2NS+10 MEQ KCL - 10 MEQ/1,000 ML INFUS.BAG IV SCH (14:30)
[2019-02-04] MEDS: KCL 10 MEQ IVPB 10 MEQ/100 ML INFUS.BAG IVPB SCH ×2 (14:51→17:02)
--- NOTE | 2019-02-04 16:41 | PN ---
Progress Note (short form) - Note Progress Note: surgery pt seen and examined. feels well. no nausea. no pain abd- soft, less distended repeat ct report pending- prelim with contrast in colon, non distended stomach or small bowel Plan- resolving psbo. clear liquids. poss advance to full liquids tomorrow and d/c home on full liquids for 1 week
[2019-02-04] MEDS: TIMOLOL 0.5% OPHTHALMIC SOL 5 ML BOTTLE OU SCH (16:58)
[2019-02-04] MEDS ORDERED: POTASSIUM CHLORIDE TABS 20 MEQ TABLET.ER (FP) PO ONE (17:15)
--- NOTE | 2019-02-04 23:41 | PN ---
Progress Note, Physician - Current Medication List Current Medications: Active Medications Diltiazem HCl (Cardizem Cd -) 180 mg PO DAILY [facility] Last Admin: 02/04/19 10:14 Dose: 180 mg Potassium Chloride/Dextrose/Sod Cl (D5-1/2ns+10 Meq Kcl -) 10 meq in 1,000 mls @ 100 mls/hr IV ASDIR [facility] Last Admin: 02/04/19 14:52 Dose: 100 mls/hr Metoprolol Succinate (Toprol Xl -) 200 mg PO DAILY [facility] Last Admin: 02/04/19 10:14 Dose: 200 mg Non-Formulary Medication (Latanoprostene Bunod [Vyzulta]) 1 drop OU DAILY [facility] Non-Formulary Medication (Travoprost [Travatan Z]) 1 drop OU ACHS [facility] Pantoprazole Sodium (Protonix Iv) 40 mg IVPUSH DAILY [facility] Last Admin: 02/04/19 10:15 Dose: 40 mg Timolol Maleate (Timoptic 0.5%) 1 drop OU BID [facility] Last Admin: 02/04/19 16:58 Dose: 1 drop - Objective Vital Signs: Vital Signs Temperature 98.2 F 02/04/19 21:30 Pulse Rate 70 02/04/19 21:30 Respiratory Rate 18 02/04/19 21:30 Blood Pressure 159/81 02/04/19 21:30 O2 Sat by Pulse Oximetry (%) 97 02/04/19 20:09 Labs: CBC, BMP 02/04/19 06:00 02/04/19 06:00 INR, PTT INR 1.19 (0.83-1.09) H 02/02/19 22:20
[2019-02-05 06:48] LABS: BASO % 0.6 % (0-2.0); EOS % 1.7 % (0-4.5); HEMATOCRIT 34.4 % (32.4-45.2); HEMOGLOBIN 11.8 GM/dL (10.7-15.3); LYMPH % 29.7 % (8-40); MCH 32.5 pg (25.7-33.7); MCHC 34.1 g/dl (32.0-36.0); MEAN CELL VOLUME 95.3 fl (80-96); MEAN PLT VOLUME 7.6 fl (7.5-11.1); MONO % 10.6 % (3.8-10.2); NEUT % 57.4 % (42.8-82.8); PLATELET COUNT 231 K/MM3 (134-434); RBC 3.61 M/mm3 (3.60-5.2); RDW 12.9 % (11.6-15.6); WHITE BLOOD COUNT 5.4 K/mm3 (4.0-10.0)
[2019-02-05 07:05] LABS: ALBUMIN 3.2 g/dl (3.4-5.0); BILIRUBIN,TOTAL 0.4 mg/dL (0.2-1); BLOOD UREA NITROGEN 5.5 mg/dL (7-18); CALCIUM 8.6 mg/dL (8.5-10.1); CREATININE 0.5 mg/dL (0.55-1.3); POTASSIUM 3.4 mmol/L (3.5-5.1); TOT PROT 6.8 g/dl (6.4-8.2)
[2019-02-05] MEDS: TIMOLOL 0.5% OPHTHALMIC SOL 5 ML BOTTLE OU SCH ×2 (10:26→10:27)
[2019-02-05] MEDS: PANTOPRAZOLE SODIUM 40 MG VIAL IVPUSH SCH (10:27)
--- NOTE | 2019-02-05 10:29 | DS ---
Physical Examination Vital Signs: Vital Signs Temperature 98.2 F 02/05/19 06:00 Pulse Rate 73 02/05/19 06:00 Respiratory Rate 120 H 02/05/19 06:00 Blood Pressure 157/93 02/05/19 06:00 O2 Sat by Pulse Oximetry (%) 97 02/04/19 20:09 Constitutional: Yes: Well Nourished Eyes: Yes: WNL HENT: Yes: WNL Neck: Yes: WNL Cardiovascular: Yes: WNL Respiratory: Yes: WNL Gastrointestinal: Yes: WNL ...Rectal Exam: Yes: Deferred Renal/: Yes: WNL Breast(s): Yes: WNL Musculoskeletal: Yes: WNL Extremities: Yes: WNL Edema: No Peripheral Pulses WNL: Yes Integumentary: Yes: WNL Neurological: Yes: WNL ...Motor Strength: WNL Psychiatric: Yes: WNL Labs: CBC, BMP 02/05/19 05:40 02/05/19 05:40 Discharge Summary Problems reviewed: Yes Reason For Visit: SMALL BOWEL OBSTRUCTION Current Active Problems Small bowel obstruction (Acute) Condition: Improved - Instructions Diet, Activity, Other Instructions: f/u w me saturday 1200 noon cont all meds as is at home will watch bp Referrals: Neptali Alberts MD [Primary Care Provider] - Disposition: HOME - Home Medications Comprehensive Discharge Medication List: Ambulatory Orders Latanoprostene Bunod [Vyzulta] 1 drop OU DAILY 12/11/18 Timolol 0.5% [Timoptic 0.5%] 1 drop OU BID 12/11/18 Travoprost [Travatan Z] 1 drop OU ACHS 12/11/18 Apixaban [Eliquis -] 2.5 mg PO BID #60 tablet 12/12/18 Diltiazem Cd [Cardizem Cd -] 120 mg PO DAILY #30 cap.cd.24h 12/12/18 Metoprolol Succinate [Toprol XL -] 200 mg PO DAILY #60 tab.sr.24h 12/12/18
[2019-02-05 11:18] VITALS: BP 149/89; PULSE 76; TEMP 98.6
[2019-02-05] MEDS ORDERED: APIXABAN 2.5 MG TABLET PO SCH (22:00)
--- NOTE | 2019-02-06 19:01 | CONS ---
DATE OF CONSULTATION: 02/03/2019 REASON FOR CONSULTATION: Small bowel obstruction. This is emergency room consultation requested by the emergency room physician. BRIEF HISTORY: This is an 83-year-old female with previous history of hysterectomy who states approximately 2 days ago she had a meal involving chicken and cauliflower. After that meal she developed some abdominal distention and discomfort. Yesterday she became nauseous and came into the emergency room. She was noted to have normal labs. 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 Her stomach; however, was quite distended and the proximal jejunum was quite distended, but located in the right upper quadrant instead of the left upper quadrant. There was no ascites, no free air. The patient refused nasogastric tube decompression. She was admitted to the hospital and request was made for a surgical evaluation. She is currently on Eliquis for new onset atrial fibrillation and she last took her dose yesterday. PAST MEDICAL HISTORY: The patient's past medical history is significant for hypertension, atrial fibrillation, and glaucoma. PAST SURGICAL HISTORY: She has a past surgical history of hysterectomy. SOCIAL HISTORY: Negative for alcohol, negative for tobacco. ALLERGIES: She has no known drug allergies. MEDICATIONS: Home medications have been reviewed. They include Eliquis, Cardizem, metoprolol, Travatan, timolol and Vyzulta. REVIEW OF SYSTEMS: General: Denied fatigue or malaise. Cardiac: Denied chest pain or palpitations. Respiratory: Denied shortness of breath, or wheeze. Gastrointestinal: Her last bowel movement was 2 days ago. She denied flatus. She states she is currently not nauseous, but she was last night. She has hiccups and she has belching. She denies recent weight loss. Musculoskeletal: Denies joint pain. Psychiatric: Denied depression, anxiety and hearing voices. PHYSICAL EXAMINATION: General: This is a thin 83-year-old female in no distress. Vitals: She is afebrile. Her vital signs are stable. HEENT: Her head is normocephalic. Sclera are anicteric. Neck: Her neck is supple. Chest: Her chest is clear. Abdomen: Her abdomen is soft. It is distended. It is nontender. She has a midline incision, which has drifted to the right with time. There is no obvious hernias. Extremities: Her extremities have trace edema. REVIEW OF HER LABORATORY: Her white blood cell count is normal at 7.4. Her chemistries are unremarkable. Her imaging is as stated in HPI. ASSESSMENT: This is an 83-year-old female with previous hysterectomy present with abdominal discomfort, distension and vomiting. CAT scan is consistent with a partial small bowel obstruction without ascites. Her white blood cell count is normal. She has no fever and she has no peritoneal findings on exam. Clinically, this is a mechanical bowel obstruction likely from adhesions. There is a possible component of malrotation to this, but suspect this is more likely secondary to an adhesive band and perhaps a fiber bolus from the cauliflower that she ate before the events occurred. Patient needs a nasogastric tube. She is refusing. She had one placed and had it removed and is declining to have it replaced. She understands that without a nasogastric tube that she may continue vomiting, that conservative management is less likely to be successful. Her Eliquis needs to be held for at least 48 hours before surgery can be considered unless she showed signs of compromise. I will repeat the CAT scan with oral contrast, as the initial CAT scan was a suboptimal study. I am interested to see if the contrast passes through the transition zone and if this is truly a partial bowel obstruction, versus a high-grade obstruction. Patient currently has no evidence of bowel compromise and she understands that by not using the nasogastric tube that she is more likely to fail medical management. If she does not improve over the next several days after Eliquis has worn off, then I would consider exploratory surgery. She understands that if she does require surgery that she will require a nasogastric tube postoperatively. Hopefully, when she wakes up, she will allow that tube to remain and at this point since she is on Eliquis and refusing even nasogastric tube decompression and she is having minimal bowel rest as her only treatment, I will reevaluate after several days to see if there is some improvement. Currently there is no indication for urgent surgical exploration as she has a benign abdomen and she is on full anticoagulation. DO INNA PATRICIO/[id number] [facility] SYSTEMDillan
== END 2019-02-05 11:24 | disposition home health service (06) | DRG 390 ==
LOC: JER 19:29 → JERBED 02-03 03:16 → J4W 02-03 12:44
PROVIDERS: ADMIT Family Medicine; ATTEND Family Medicine
DX: K56.609 Unspecified intestinal obstruction, unspecified as to partial versus complete obstruction (principal); R07.89 Other chest pain; I10 Essential (primary) hypertension; I48.91 Unspecified atrial fibrillation; H40.9 Unspecified glaucoma
CPT/HCPCS: 36415; 71045-TC-FY; 74176-TC; 74177-TC; 80053; 82550; 83605; 84484; 85025; 85027; 85610; 93005; 93010; 99284-25; J7030; Q9967

== ENCOUNTER 2023-06-19 10:48 | Emergency (ER) | payer OTHER ==
[2023-06-19 10:55] VITALS: BP 176/90; PULSE 83; RESP 18; TEMP 98; BMI 23.0
[2023-06-19 12:28] LABS: BASO % 0.9 % (0-2.0); EOS % 1.2 % (0-4.5); HEMOGLOBIN 12.3 GM/dL (10.7-15.3); LYMPH % 23.9 % (8-40); MCHC 34.2 g/dl (32.0-36.0); MEAN CELL VOLUME 96.5 fl (80-96); MEAN PLT VOLUME 6.9 fl (7.5-11.1); MONO % 10.6 % (3.8-10.2); NEUT % 63.4 % (42.8-82.8); PLATELET COUNT 300 10^3/uL (134-434); RBC 3.73 M/mm3 (3.60-5.2); RDW 13.3 % (11.6-15.6); WHITE BLOOD COUNT 5.3 K/mm3 (4.0-10.0)
[2023-06-19 12:47] LABS: CALCIUM 8.8 mg/dL (8.5-10.1)
[2023-06-19 12:48] LABS: ALBUMIN 3.3 g/dl (3.4-5.0); BLOOD UREA NITROGEN 10.4 mg/dL (7-18)
[2023-06-19 12:51] LABS: CREATININE 0.6 mg/dL (0.55-1.3)
[2023-06-19 12:52] LABS: TOT PROT 7.5 g/dl (6.4-8.2)
[2023-06-19 12:53] LABS: BILIRUBIN,TOTAL 0.8 mg/dL (0.2-1)
[2023-06-19 12:55] LABS: INR 1.06 (0.83-1.09)
[2023-06-19 12:58] LABS: ACTIVATED PTT 31.8 SECONDS (25.2-36.5)
== END 2023-06-19 14:00 | disposition short-term general hospital (02) ==
LOC: JER 10:48
DX: N81.9 Female genital prolapse, unspecified (principal)
CPT/HCPCS: 36415; 80053; 85025; 85610; 85730; 86850; 86900; 86901; 99285-25

== ENCOUNTER 2024-06-22 10:28 | Inpatient (IN) | payer OTHER ==
[2024-06-22 11:08] VITALS: BMI 22.6
[2024-06-22 12:02] LABS: ABSOLUTE IMMATURE GRANULOCYTES 0.07 x10^3/uL (0.0-0.031); BASOPHILS # 0.03 x10^3/uL (0.01-0.08); HEMATOCRIT 42.5 % (34.1-44.9); HEMOGLOBIN 14.1 g/dL (11.2-15.7); MCHC 33.2 g/dl (32.2-35.5); MEAN CELL VOLUME 94.9 fl (79.4-94.8); MEAN PLT VOLUME 10.6 fl (9.4-12.3); MONOCYTE # 0.97 x10^3/uL (0.24-0.86); MONOCYTE % 7.2 % (4.7-12.5); PLATELET COUNT 368 x10^3/uL (182-369); RDW 12.8 % (12.5-17.0)
[2024-06-22 12:09] LABS: INR 1.36 (0.83-1.09)
[2024-06-22 12:11] LABS: ACTIVATED PTT 33.1 SECONDS (25.2-36.5)
[2024-06-22 12:26] LABS: CHLORIDE 100 mmol/L (98-107); SODIUM 134 mmol/L (136-145)
[2024-06-22 12:28] LABS: ALBUMIN 3.2 g/dl (3.4-5.0); CALCIUM 9.6 mg/dL (8.5-10.1); CO2 27 mmol/L (21-32)
[2024-06-22 12:29] LABS: BLOOD UREA NITROGEN 12.4 mg/dL (7-18); GLUCOSE,RANDOM 121 mg/dL (74-106)
[2024-06-22 12:32] LABS: CREATININE 0.8 mg/dL (0.55-1.3)
[2024-06-22 12:33] LABS: BILIRUBIN,TOTAL 1.1 mg/dL (0.2-1); TOT PROT 9.2 g/dl (6.4-8.2)
[2024-06-22 12:34] LABS: ALK PHOS 127 U/L (45-117)
[2024-06-22 12:52] LABS: ANION GAP 8 mmol/L (4-13); POTASSIUM 7.6 mmol/L (3.5-5.1); SGOT/AST 110 U/L (15-37); SGPT/ALT 27 U/L (13-61)
[2024-06-22 13:04] LABS: EPI CELLS 12 /uL (0-25.1); HYALINE CASTS 0 /uL (0-3.1); URINE APPEARANCE TURBID; URINE BACTERIA >9,000 /uL (0-1359); URINE BILIRUBIN NEGATIVE (NEGATIVE); URINE COLOR YELLOW; URINE GLUCOSE (UA) NEGATIVE (NEGATIVE); URINE KETONE 1+ (NEGATIVE); URINE LEUK ESTERASE 3+ (NEGATIVE); URINE NITRITE POSITIVE (NEGATIVE); URINE PROTEIN 2+ (NEGATIVE); URINE RBC 72 /uL (0-23.9); URINE WBC 4421 /uL (0-25.8)
[2024-06-22] MEDS ORDERED: CEFTRIAXONE 1 G/50 ML PREMIX 50 ML IVPB ONE (13:32)
[2024-06-22] MEDS: CEFTRIAXONE 1,000 MG in DEXTROSE 5%-WATER - 50 ML IVPB ONE (13:38)
[2024-06-22 13:46] LABS: POTASSIUM 3.8 mmol/L (3.5-5.1)
[2024-06-22 13:47] LABS: CALCIUM 9.3 mg/dL (8.5-10.1)
[2024-06-22 13:51] LABS: CREATININE 0.8 mg/dL (0.55-1.3)
[2024-06-22 13:52] LABS: BLOOD UREA NITROGEN 12.4 mg/dL (7-18)
[2024-06-22] MEDS: SODIUM CHLORIDE 0.9% 500 ML INFUS.BAG IV ONE (17:29)
[2024-06-22] MEDS: METOPROLOL TARTRATE 50 MG TABLET (FP) PO SCH (22:03)
[2024-06-22] MEDS: APIXABAN 2.5 MG TABLET PO SCH (22:04)
[2024-06-23 08:30] LABS: ABSOLUTE IMMATURE GRANULOCYTES 0.06 x10^3/uL (0.0-0.031); BASOPHILS # 0.03 x10^3/uL (0.01-0.08); HEMATOCRIT 37.7 % (34.1-44.9); HEMOGLOBIN 12.5 g/dL (11.2-15.7); MCHC 33.2 g/dl (32.2-35.5); MEAN CELL VOLUME 95.7 fl (79.4-94.8); MONOCYTE # 1.21 x10^3/uL (0.24-0.86); PLATELET COUNT 310 x10^3/uL (182-369); RDW 12.7 % (12.5-17.0)
[2024-06-23] MEDS: CEFTRIAXONE 1 G/50 ML PREMIX 50 ML IVPB SCH (09:24)
[2024-06-23] MEDS: MEMANTINE HCL 5 MG TABLET (UD) PO SCH (09:25)
[2024-06-23 09:47] LABS: POTASSIUM 3.7 mmol/L (3.5-5.1)
[2024-06-23] MEDS ORDERED: ENOXAPARIN NA (PORCINE) 40 MG/0.4 ML DISP.SYRIN SQ SCH (10:00)
[2024-06-23 10:23] LABS: BLOOD UREA NITROGEN 12.5 mg/dL (7-18); CALCIUM 8.9 mg/dL (8.5-10.1)
[2024-06-23 10:26] LABS: CREATININE 0.7 mg/dL (0.55-1.3)
[2024-06-23 10:27] LABS: PHOSPHOROUS 2.4 mg/dL (2.5-4.9)
[2024-06-23] MEDS: NAPH,MB-DB/K PH,MBDB POWDER PACKET PO SCH (13:29)
[2024-06-24 06:06] VITALS: RESP 18
[2024-06-24 09:17] LABS: ABSOLUTE IMMATURE GRANULOCYTES 0.04 x10^3/uL (0.0-0.031); BASOPHILS # 0.04 x10^3/uL (0.01-0.08); EOSINOPHIL % 0.3 % (0.7-5.8); EOSINOPHILS # 0.03 x10^3/uL (0.04-0.36); HEMATOCRIT 38.4 % (34.1-44.9); HEMOGLOBIN 12.3 g/dL (11.2-15.7); MEAN PLT VOLUME 9.8 fl (9.4-12.3); MONOCYTE # 1.21 x10^3/uL (0.24-0.86); MONOCYTE % 10.9 % (4.7-12.5); PLATELET COUNT 323 x10^3/uL (182-369); RDW 12.6 % (12.5-17.0)
[2024-06-24 09:38] LABS: POTASSIUM 3.7 mmol/L (3.5-5.1)
[2024-06-24 09:44] LABS: ALBUMIN 2.8 g/dl (3.4-5.0)
[2024-06-24 09:46] LABS: BLOOD UREA NITROGEN 13.8 mg/dL (7-18); MAGNESIUM 1.9 mg/dL (1.8-2.4)
[2024-06-24 09:49] LABS: BILIRUBIN,TOTAL 0.7 mg/dL (0.2-1); CREATININE 0.6 mg/dL (0.55-1.3); PHOSPHOROUS 2.7 mg/dL (2.5-4.9)
[2024-06-24 09:50] LABS: TOT PROT 7.3 g/dl (6.4-8.2)
[2024-06-24] MEDS: ACETAMINOPHEN 325 MG TABLET (FP) PO PRN (21:34)
[2024-06-25 06:46] VITALS: BP 135/96; PULSE 77; TEMP 98.1
[2024-06-25 08:12] LABS: EOSINOPHILS # 0.04 x10^3/uL (0.04-0.36); HEMOGLOBIN 12.5 g/dL (11.2-15.7); MEAN PLT VOLUME 9.5 fl (9.4-12.3); RDW 12.4 % (12.5-17.0)
[2024-06-25 08:13] LABS: ABSOLUTE IMMATURE GRANULOCYTES 0.03 x10^3/uL (0.0-0.031); BASOPHILS # 0.03 x10^3/uL (0.01-0.08); EOSINOPHIL % 0.5 % (0.7-5.8); HEMATOCRIT 38.5 % (34.1-44.9); MCHC 32.5 g/dl (32.2-35.5); MEAN CELL VOLUME 96.7 fl (79.4-94.8); MONOCYTE # 0.97 x10^3/uL (0.24-0.86); MONOCYTE % 11.3 % (4.7-12.5); PLATELET COUNT 290 x10^3/uL (182-369)
[2024-06-25 09:02] LABS: POTASSIUM 3.7 mmol/L (3.5-5.1)
[2024-06-25 09:15] LABS: ALBUMIN 2.7 g/dl (3.4-5.0); CALCIUM 8.8 mg/dL (8.5-10.1)
[2024-06-25 09:16] LABS: MAGNESIUM 2.1 mg/dL (1.8-2.4)
[2024-06-25 09:20] LABS: TOT PROT 7.4 g/dl (6.4-8.2)
[2024-06-25 09:21] LABS: BILIRUBIN,TOTAL 0.6 mg/dL (0.2-1)
[2024-06-25 09:22] LABS: CREATININE 0.8 mg/dL (0.55-1.3)
[2024-06-25] MEDS: ERTAPENEM SODIUM 1 GM in SODIUM CHLORIDE 50 ML IVPB SCH (10:08)
== END 2024-06-25 14:33 | DRG 871 ==
LOC: JER 10:28 → JERBED 17:34 → OBSVTOIN 17:49 → J8W 20:01
PROVIDERS: ADMIT Internal Medicine; ATTEND Nurse Practitioner Acute Care
DX: A41.9 Sepsis, unspecified organism (principal); G93.41 Metabolic encephalopathy; N39.0 Urinary tract infection, site not specified; E46 Unspecified protein-calorie malnutrition; I48.91 Unspecified atrial fibrillation; F03.90 Unspecified dementia, unspecified severity, without behavioral disturbance, psychotic disturbance, mood disturbance, and anxiety; N81.4 Uterovaginal prolapse, unspecified; L89.156 Pressure-induced deep tissue damage of sacral region; Z68.22 Body mass index [BMI] 22.0-22.9, adult
CPT/HCPCS: 0241U-QW; 36415; 71045-TC-FY; 80048; 80053; 81003; 82962; 83735; 84100; 85025; 85610; 85730; 87040; 87086; 87186; 87635; 93005; 93010; 97116-GP; 97161-GP; 99285-25; G0378